=== PATIENT | male | born 1985 | race Caucasian/White ===

== ENCOUNTER 2020-01-02 16:16 | Outpatient (REF) | payer MEDICAID, SELFPAY | END 2020-01-02 16:17 | disposition home or self-care (01) | LOC: HO.LAB 16:16 | PROVIDERS: PCP Internal Medicine; Visit Provider Internal Medicine | DX: Z20.828 Contact with and (suspected) exposure to other viral communicable diseases (principal) | CPT/HCPCS: 87635 ==

== ENCOUNTER 2020-03-21 13:17 | Outpatient (REF) | payer MEDICAID, SELFPAY | END 2020-03-21 13:18 | disposition home or self-care (01) | LOC: HO.LAB 13:17 | PROVIDERS: Visit Provider Internal Medicine | DX: Z20.828 Contact with and (suspected) exposure to other viral communicable diseases (principal) | CPT/HCPCS: C9803; U0003 ==

== ENCOUNTER → 2020-05-29 13:16 | Outpatient (BNVA) | payer OTHER, SELFPAY | PROVIDERS: PCP Internal Medicine; Visit Provider Internal Medicine | DX: R07.2 Precordial pain (principal) | CPT/HCPCS: 93005 ==

== ENCOUNTER → 2020-08-20 08:34 | Outpatient (REF) | payer OTHER, SELFPAY ==
--- NOTE | 2020-08-20 | CA_ITS ---
Transthoracic Echocardiogram Patient (Last, First, Middle): Dayday Jiménez, Gender: Male Date of : 1985 Age: 35 Procedure Date: 08/20/2020 Procedure Type: Transthoracic Echocardiogram Location: OP Height: 177.8 cm Weight: 83.92 kg BSA: 2.02 m2 Heart Rate: bpm BP: 122 / 69 mmHg [employer] Supervisor: DSZaid Referring MD: Neal Romo MD Symptoms: R07.2 - Precordial pain Study Quality: Good ECG Rhythm: Sinus Conclusions: - The left ventricular systolic function is normal. The visually estimated ejection fraction is between 60-65%. - No obvious valvular pathology seen on this study. Findings Left Ventricle Normal left ventricular cavity size. There is normal left ventricular wall thickness. The left ventricular systolic function is normal. The visually estimated ejection fraction is between 60-65%. There is no evidence of regional wall motion abnormalities. Diastolic function is normal for age. Right Ventricle Normal right ventricular cavity size and systolic function. Atria Both atria are normal in size. Aortic Valve There is a normal trileaflet aortic valve. There is no aortic valve stenosis. There is no aortic valve regurgitation. Mitral Valve The mitral valve appears normal. There is trace mitral valve regurgitation. There is no mitral valve stenosis. Pulmonic Valve The pulmonic valve was not well visualized. Tricuspid Valve Normal tricuspid valve structure. There is trace tricuspid valve regurgitation. The pulmonary artery systolic pressure is normal. Great Vessels The aortic annulus, sinuses of valsalva, and asc aorta are normal in size. Likely artifact in ascending aorta. Venous The inferior vena cava is normal in size and collapses greater than 50% with inspiration. Pericardium/Pleural There is no evidence of pericardial effusion. Prior Study Comparison No prior study available for comparison. Recommendations, Care & Conclusions No obvious valvular pathology seen on this study. Measurements M-Mode Liner Measurements Normals - Women/Men LVIDd: 5.57 3.9-5.3/4.2-5.9 cm LVIDd Index: 2.76 1.9-3.2 cm/m2 LVIDs: 3.76 2.0-3.8 cm M-Mode Volumes LV EDV: 152.00 LV ESV: 60.40 2D Linear Measurements IVSd: 0.97 0.6-0.9/0.6-1.0 cm LVIDd: 5.14 3.9-5.3/4.2-5.9 cm LVIDd Index: 2.54 2.4-3.2/2.2-3.1 cm/m2 LVIDs: 3.81 2.0-3.6 cm LVPWd: 1.52 0.7-1.1 cm LA Diam: 3.50 2.7-3.8/3.0-4.0 cm LAIDs Index: 1.73 1.5-2.3 cm/m2 LV Mass: 321.28 67-162/88-224 g LV Mass Index: 159.05 43-95/49-115 g/m2 LVOT Diam: 2.20 3.0+(-)1.3 cm 2D Systolic Function EF 4C: 61.10 >55% EF 2C: 68.60 >55% EF BiP: 63.50 >55% M-Mode Systolic Function FS: 32.50 27-47/25-43% LVEF: 60.30 >55% Mitral Valve MV Pk E: 0.91 MV PK A: 0.53 MV Decel Time: 220.00 E/A: 1.70 E'Lateral: 12.20 E'Medial: 9.36 E/E' Med: 9.80 E/E' Lat: 7.50 PHT: 64.00 MVA PHT: 3.44 Decel Wayne: 4.15 Aortic Valve AoV Pk Luis Miguel: 1.37 AoV Pk Grad: 8.00 LVOT LVOT Pk Luis Miguel: 1.07 LVOT Mn Luis Miguel: 0.70 LVOT VTI: 0.21 LVOT Pk Grad: 5.00 LVOT Mn Grad: 2.00 LVOT Diam: 2.20 LVOT Area: 3.80 Diastolic Function MV Pk E: 0.91 MV Pk A: 0.53 E/A: 1.70 E'Medial: 9.36 E/E' Med: 9.80 E' Laterial: 12.20 E/E' Lat: 7.50 Tricuspid Valve TR Pk Luis Miguel: 2.01 TR Pk Grad: 16.00 RA Press: 3.00 RVSP: 19.00 Great Vessels Aorta Ao Asc: 2.70 2.1-3.4 cm Updated in Other Vendor System with Status of Final Neal Romo MD electronically signed on 08/22/2020 3:49:56 PM with status of Final
--- NOTE | 2020-08-20 08:39 | CA_ITS ---
Acquisition Time: 2020-08-20 09:29:29 Total Exercise Time: 00:12:37 Test Indications: CP Medications: SEE CHART Protocol: KELLEE Max HR: 160 BPM 85% of Pred: 187 BPM Max BP: 158/060 mmHG Max Work Load: 14.5 METS Exercise stress test with exercise 12 min 37 sec of Kellee protocol, without anginal symptoms, without arrythmia, with normotensive response to exercise, without EKG changes meeting criteria for ischemia. Test reviewed with Dr Romo. Referred By: Neal Romo Overread By: PRATIK VELIZ
== END ==
LOC: HO.CARD 08:34
PROVIDERS: Visit Provider Internal Medicine
DX: R07.2 Precordial pain (principal)
CPT/HCPCS: 93016; 93017; 93018; 93306

== ENCOUNTER 2021-03-12 10:19 | Outpatient (REF) | payer OTHER, SELFPAY ==
[2021-03-12 12:02] LABS: COVID-19 Test Negative (Negative); IDNOW Serial# 16C4AD1C
== END 2021-03-12 10:20 | disposition home or self-care (01) ==
LOC: HO.LAB 10:19
PROVIDERS: Visit Provider Internal Medicine
DX: Z20.822 Contact with and (suspected) exposure to COVID-19 (principal)
CPT/HCPCS: 36415; 87635; C9803

== ENCOUNTER 2021-04-14 10:56 | Outpatient (REF) | payer OTHER, SELFPAY ==
--- NOTE | ~2021-04-14 | XR_ITS ---
EXAMINATION: XR CHEST CLINICAL INFORMATION: Cough COMPARISON: Previous chest x-ray September 2017 TECHNIQUE: 2 views of the chest were obtained. FINDINGS: No significant abnormality is noted involving the heart, lungs, mediastinum, bony thorax or soft tissues. XR/XR chest 2V IMPRESSION: Unremarkable examination.
== END 2021-04-14 10:57 | disposition home or self-care (01) ==
LOC: HO.XRAY 10:56
PROVIDERS: PCP Internal Medicine; Visit Provider Physician Assistant Medical
DX: R05.9 Cough, unspecified (principal)
CPT/HCPCS: 71046

== ENCOUNTER 2021-04-15 09:07 | Outpatient (REF) | payer OTHER, SELFPAY ==
[2021-04-15 09:44] LABS: COVID-19 Test Positive (Negative)
== END 2021-04-15 09:08 | disposition home or self-care (01) ==
LOC: HO.LAB 09:07
PROVIDERS: Visit Provider Internal Medicine
DX: Z20.822 Contact with and (suspected) exposure to COVID-19 (principal)
CPT/HCPCS: 87635; C9803

== ENCOUNTER 2021-05-06 08:04 | Outpatient (REF) | payer OTHER, SELFPAY ==
[2021-05-06 08:25] LABS: MANUAL DIFF FLAG NO
[2021-05-06 08:34] LABS: Basophils Percent Auto 0.6 % (0-2); Eosinophils Absolute Auto 0.2 X10*3/uL (0.0-0.4); Eosinophils Percent Auto 3.1 % (0-4); Hematocrit 50.4 % (42.0-52.0); Hemoglobin 16.6 g/dl (14.0-18.0); Imm Gran Abs Auto 0.01 X10*3/uL (0.00-0.03); Imm Gran Pct Auto 0.1 % (0.0-0.4); Lymphocytes Absolute Auto 2.2 X10*3/uL (1.2-4.9); Lymphocytes Percent Auto 33.2 % (20-40); Mean Corpuscular HGB Conc 32.9 g/dl (31.0-36.0); Mean Corpuscular Hemoglobin 29.4 pg (27.0-33.0); Mean Corpuscular Volume 89.2 fL (80.0-98.0); Mean Platelet Volume 11.1 fL (9.4-12.4); Monocytes Absolute Auto 0.9 X10*3/uL (0.1-1.2); Monocytes Percent Auto 13.6 % (2-11); Neutrophils Absolute Auto 3.3 x10*3/uL (2.0-8.3); Neutrophils Percent Auto 49.4 % (45-73); Platelet Count 205 X10*3/uL (160-400); Red Blood Count 5.65 X10*6/uL (4.60-5.80); White Blood Count 6.7 X10*3/uL (4.8-10.8)
[2021-05-06 08:56] LABS: Alanine Aminotransferase 61 U/L (0-40); Albumin Level 4.5 g/dL (3.5-5.0); Alkaline Phosphatase 38 U/L (39-117); Anion Gap 12 (12-20); Aspartate Amino Transferase 37 U/L (5-37); Bilirubin Total 0.8 mg/dL (0.0-1.0); Blood Urea Nitrogen 24 mg/dL (9-16); C Reactive Protein 0.06 mg/dL (< or = 0.50); Calcium 9.7 mg/dL (8.4-10.2); Carbon Dioxide 28 mmol/L (22-29); Chloride 104 mmol/L (96-108); Estimated Glomerular Filt Rate > 60; Glucose Random 107 mg/dL (60-115); Potassium 4.8 mmol/L (3.3-5.1); Sodium 139 mmol/L (135-145); Total Protein 7.7 g/dL (6.5-8.0)
[2021-05-06 09:12] LABS: Erythrocyte Sedimentation Rate 2 MM/HR (0-15)
[2021-05-06 09:17] LABS: Free T4 (Free Thyroxine) 0.93 ng/dL (0.71-1.85); Thyroid Stimulating Hormone 2.67 uIU/mL (0.32-4.0)
[2021-05-08 01:07] LABS: Lyme Abs Screen <0.90 index
[2021-05-08 12:51] LABS: Anti Nuclear Antibody Screen NEGATIVE (NEGATIVE)
[2021-05-11 17:47] LABS: Testosterone, Free 282.6 pg/mL (35.0-155.0); Testosterone, Total 886 ng/dL (250-1100)
== END 2021-05-06 08:05 | disposition home or self-care (01) ==
LOC: HO.LAB 08:04
PROVIDERS: Visit Provider Physician Assistant Medical
DX: R07.89 Other chest pain (principal); R05.9 Cough, unspecified; R50.9 Fever, unspecified; E29.0 Testicular hyperfunction; M25.50 Pain in unspecified joint
CPT/HCPCS: 36415; 80053; 84402; 84403; 84439; 84443; 85025; 85652; 86038; 86039; 86140; 86617; 86618

== ENCOUNTER → 2021-07-08 14:50 | Outpatient (BNVA) | payer OTHER, SELFPAY | PROVIDERS: PCP Internal Medicine; Visit Provider Physician Assistant | DX: Z13.89 Encounter for screening for other disorder (principal) ==

== ENCOUNTER → 2021-08-22 09:17 | Outpatient (BNVA) | payer OTHER, SELFPAY | PROVIDERS: PCP Internal Medicine; Visit Provider Orthopaedic Surgery | DX: S43.431A Superior glenoid labrum lesion of right shoulder, initial encounter (principal) | CPT/HCPCS: 20610; J1100 ==

== ENCOUNTER 2022-02-25 08:36 | Day surgery (SDC) | payer OTHER, SELFPAY ==
--- NOTE | 2022-02-24 09:16 | P.CONAN_ITS ---
Documented by User: Yolanda Jo NP 02/24/22 09:18 HPI - Anesthesia Eval Consult details Narrative: 37yo M for Right Shoulder Arthroscopy with possible rotator cuff repair 2020 work up for chest pain with negative stress and echo PMFSH Active Problems Active Problems: All Active Problems (Updated 02/16/22 @ 14:13 by Mila Berg, RN) Precordial chest pain (Acute) Supraspinatus tendon tear (Acute) Superior labrum [id number] (SLAP) tear of right shoulder (Acute) Osteolysis of acromial end of right clavicle (Acute) Past Medical History Medical History (Updated 02/16/22 @ 14:13 by Mila Berg RN) Anxiety disorder Depression History of traumatic brain injury Hypogonadism Insomnia Low back pain Lumbar radiculopathy Palpitations Family History Family History Father No problems noted. Mother No problems noted. Surgical History Surgical History No pertinent past surgical history Social History Social History Patient Tobacco Use Status: Former Tobacco user Tobacco use type: Cigarette Use of substances other than those prescribed or required for medical reasons: Yes Substance Use Type Other:: THC DROPS Are you DNR?: No Advance Directives: No Advance Directives Information Provided: Yes Current occupational status: employed Current occupation: [employer] Allergies Allergy/AdvReac Type Severity Reaction Status Date / Time oxycodone AdvReac Nausea and Verified 02/25/22 08:45 Vomiting Home Medications Medication Instructions Recorded Confirmed Last Taken Type testosterone cypionate 100 mg/mL 50 mg IM .Q8-10 days 05/29/20 02/16/22 Unknown History intramuscular oil Exam Exam Date and Time: February 24, 2022 0916 Assessment and Plan Assessment Anesthesia Assessment: Chart Reviewed Documented by User: Alicia Woodard MD 02/25/22 10:36 [facility] Past Medical History Medical History (Updated 02/16/22 @ 14:13 by Mila Berg RN) Anxiety disorder Depression History of traumatic brain injury Hypogonadism Insomnia Low back pain Lumbar radiculopathy Palpitations Family History Family History Father No problems noted. Mother No problems noted. Surgical History Surgical History No pertinent past surgical history History of Problems with Anesthesia: No Social History Social History Patient Tobacco Use Status: Former Tobacco user Tobacco use type: Cigarette Use of substances other than those prescribed or required for medical reasons: Yes Substance Use Type Other:: THC DROPS Are you DNR?: No Advance Directives: No Advance Directives Information Provided: Yes Current occupational status: employed Current occupation: [employer] Med[employer] Allergies Allergy/AdvReac Type Severity Reaction Status Date / Time oxycodone AdvReac Nausea and Verified 02/25/22 08:45 Vomiting Home Medications Medication Instructions Recorded Confirmed Last Taken Type testosterone cypionate 100 mg/mL 50 mg IM .Q8-10 days 05/29/20 02/16/22 Unknown History intramuscular oil Exam Airway Mallampati Class: I TM Dist: >3cm Neck ROM: Full Heart: rr Lungs: cta Assessment and Plan Final Anesthetic Review History of Problems with Anesthesia: No ASA Class: II Final Preanesthetic Review: No Changes in Pt Med Stat, Meds/Allgs Chart Reviewed, Consent Obtained/Reviewed and Anes Risks/Benef Reviewed Patient Risk: Low Procedure Risk: Low Anesthetic Plan Anesthetic Plan: GA and Regional Block (Supraclavicular) Disposition: Standard PACU
[2022-02-25] VITALS (8 sets, daily range): BP systolic 105–120; BP diastolic 54–69; PULSE 58–73; RESP 16–18; TEMP 36.3–36.5; O2SAT 96–99; BMI 25.7
[2022-02-25] MEDS: Lactated Ringers 1,000 ML 100 ML IVCONT (09:25)
--- NOTE | 2022-02-25 09:26 | PC.NURSE ---
BEFORE IV INSERTION PATIENT STATED HE USUALLY PASSES OUT WITH BLOODWORK. SUPINE, COLD CLOTH APPLIED TO FOREHEAD, IV INSERTED JEANETTE WELL. NO VAGAL RESPONSE.
--- NOTE | 2022-02-25 10:58 | MHC.SHP ---
Pre-Procedural Eval Section A Date of Service: 02/25/22 The patient is an INPATIENT: No Changes since office visit: Yes Patient answered all questions; No Cold of Flu in the past 2 weeks, No New Medical Problems and No Changes in Medication The History & Physical has been completed within 30 days and I have reviewed it.: Yes Section B Chief Complaint: Superior glenoid labrum lesion of right shoulder, Allergies: Allergies Allergy/AdvReac Type Severity Reaction Status Date / Time oxycodone AdvReac Nausea and Verified 02/25/22 08:45 Vomiting Plan I have reviewed the history and physical and performed a pertinent physical examination on my patient. No changes have occurred unless specified.
--- NOTE | 2022-02-25 13:10 | P.BOP_ITS ---
Brief Operative Note Date of Service: 02/25/22 Pre-op diagnosis: Right shoulder RTC tear Post-op diagnosis: same Procedure: Right shoulder RTC repair Implants: Maldonado and Nephew helacoil x 2 Regeneten bioinductive implant ( [id number]) Surgeon: Jorge Das MD Anesthesia: GETA and regional Was an Labor Relations Specialist used for this Procedure?: Yes Labor Relations Specialist: Kacie Clements Estimated blood loss (mL): 20 IV fluids (mL): 800 Pathology: none sent Condition: stable Disposition: PACU
[2022-02-25] MEDS: Throat Lozenge, Medicated LOZENGE 1 LOZENGE MUCOUS MEM (14:09)
--- NOTE | 2022-03-06 10:02 | P.OP_ITS ---
Operative Note Operative Note Date of Service: 02/25/22 Narrative: Date of Service: 02/25/22 Pre-op diagnosis: Right shoulder RTC tear Post-op diagnosis: same Procedure: Right shoulder RTC repair Implants: Maldonado and Nephew helacoil x 2 Regeneten bioinductive implant ( [id number]) Surgeon: Jorge Das MD Anesthesia: GETA and regional Was an Manpower Development Specialist Manager used for this Procedure?: Yes Manpower Development Specialist Manager: Kacie Clements Estimated blood loss (mL): 20 IV fluids (mL): 800 Pathology: none sent Condition: stable Disposition: PACU Procedure in detail: Patient was brought to the operating room and placed the the beach chair position. All bony prominences were well padded and the limb was prepped and draped in standard sterile fashion. A time out was called to identify proper site, proper procedure and proper surgeon. IV antibiotics per weight were administered. I began by making a posterolateral stab incision with a 15 blade. A blunt trochar was placed into the glenohumeral joint and I insufflated the joint with saline and a 30 degree arthroscope was placed. I established an outside- in anterior portal just distal to the biceps tendon. I then began my inspection of the glenohumeral joint. There was intact biceps and superior labrum with no SLAP tear. There was anteriorinferior labral fraying and a small area of post-traumatic cartialge change at the 5 o:clock position. There was a negative drive through sign. I debrided the [id number] labrum and the associated chondromalacia. There were no additional arthritic changes. There was, howevere, a PASTA lesion. I placed a spinal needle through this from the subacromial space and debrided it with a shaver. I then removed the trochar and entered the subacromial space. A direct lateral portal was then established and I performed a bursectomy. The cuff was then examined. There was an intact bursal layer but at the location of the PASTA lesion there was thin tissue and it was easily converted to a full thickness tear with a shaver. I then debrided loose tissue and then placed one medial row anchor and two looped sutures around the edges. I then debrided the bare area down to bleeding bone. The suture tape was brought through the cuff using a scorpion and then 4 suture limbs were brought to one lateral Helacoil anchor. I had excellent reproduction of the normal cuff anatomy. There was mild bursal sided partial tearing of the cuff but given the severity of the PASTA lesion I elected to place a 25mm x 25mm Regeneten bioinductive collagen graft. This was placed via a lateral portal and 8 PEEK tacks and one bony anchor laterally. I had excellent coiverage over the supraspinatus. Once I was satisfied with the r epair final images were captured and I removed all instrumentation. Portals were closed with nylon. Patient was placed in an abduction sling, extubated and brought to the recovery room in stable condition. There were no known complications.
== END 2022-02-25 15:37 | disposition home or self-care (01) ==
LOC: HO.SSS 08:36
PROVIDERS: PCP Physician Assistant Medical; Visit Provider Orthopaedic Surgery
PROC: (CPT 29805; principal; 2022-02-25 10:50)
DX: M75.101 Unspecified rotator cuff tear or rupture of right shoulder, not specified as traumatic (principal); M89.511 Osteolysis, right shoulder; M54.16 Radiculopathy, lumbar region; F32.A Depression, unspecified; F41.1 Generalized anxiety disorder; G47.00 Insomnia, unspecified; R00.2 Palpitations; Z79.899 Other long term (current) drug therapy; Z87.820 Personal history of traumatic brain injury
CPT/HCPCS: 29827; 29826; C1713; C1781; J0690; J2250; J2795; J3010

== ENCOUNTER 2022-04-06 10:31 | Outpatient (REF) | payer OTHER, SELFPAY ==
--- NOTE | ~2022-04-06 | XR_ITS ---
EXAMINATION: XR SHOULDER, RIGHT CLINICAL INFORMATION: Pain shoulder COMPARISON: Right shoulder arthrogram 05/21/2021 and selected images right shoulder MRI 11/18/2021. TECHNIQUE: Two views of the right shoulder. FINDINGS: Evidence of prior surgical anchor in the right humeral head. The right humeral head is inferiorly subluxed with apparent joint effusion and widening of the shoulder joint. Multiple small ossific fragments or calcifications are seen adjacent to the greater tuberosity and in the subacromial space. XR/XR shoulder RT min 2V IMPRESSION: 1. Inferior subluxation of the right humeral head with apparent joint effusion. 2. Multiple small ossific fragments or calcifications are seen in the subacromial space and adjacent to the greater tuberosity. 3. The findings have progressed since the prior exam of 05/21/2021.
== END 2022-04-06 10:32 | disposition home or self-care (01) ==
LOC: HO.HOSX 10:31
PROVIDERS: PCP Physician Assistant Medical; Visit Provider Physician Assistant
DX: S43.431D Superior glenoid labrum lesion of right shoulder, subsequent encounter (principal)
CPT/HCPCS: 73030

== ENCOUNTER → 2022-05-11 09:55 | Outpatient (BNVA) | payer OTHER, SELFPAY | PROVIDERS: PCP Physician Assistant Medical; Visit Provider Internal Medicine Rheumatology | DX: Z13.89 Encounter for screening for other disorder (principal) ==

== ENCOUNTER 2022-05-11 11:28 | Outpatient (REF) | payer OTHER, SELFPAY ==
[2022-05-11 13:22] LABS: MANUAL DIFF FLAG NO
[2022-05-11 13:28] LABS: Basophils Absolute Auto 0.1 X10*3/uL (0.0-0.2); Basophils Percent Auto 0.6 % (0-2); Eosinophils Absolute Auto 0.2 X10*3/uL (0.0-0.4); Eosinophils Percent Auto 2.4 % (0-4); Hematocrit 47.6 % (42.0-52.0); Hemoglobin 15.8 g/dl (14.0-18.0); Imm Gran Abs Auto 0.03 X10*3/uL (0.00-0.03); Imm Gran Pct Auto 0.4 % (0.0-0.4); Lymphocytes Absolute Auto 1.8 X10*3/uL (1.2-4.9); Lymphocytes Percent Auto 22.3 % (20-40); Mean Corpuscular HGB Conc 33.2 g/dl (31.0-36.0); Mean Corpuscular Volume 90.3 fL (80.0-98.0); Mean Platelet Volume 11.5 fL (9.4-12.4); Monocytes Absolute Auto 0.8 X10*3/uL (0.1-1.2); Neutrophils Absolute Auto 5.2 x10*3/uL (2.0-8.3); Neutrophils Percent Auto 64.3 % (45-73); Platelet Count 190 X10*3/uL (160-400); Red Blood Count 5.27 X10*6/uL (4.60-5.80); Red Cell Distribution Width 13.6 % (11.0-16.0)
[2022-05-11 14:06] LABS: Erythrocyte Sedimentation Rate 1 MM/HR (0-15)
[2022-05-11 14:12] LABS: Alanine Aminotransferase 27 U/L (0-40); Albumin Level 4.4 g/dL (3.5-5.0); Alkaline Phosphatase 46 U/L (39-117); Anion Gap 12 (12-20); Aspartate Amino Transferase 20 U/L (5-37); Bilirubin Total 0.3 mg/dL (0.0-1.0); Blood Urea Nitrogen 23 mg/dL (9-16); C Reactive Protein 0.11 mg/dL (< or = 0.50); Calcium 9.4 mg/dL (8.4-10.2); Carbon Dioxide 29 mmol/L (22-29); Chloride 104 mmol/L (96-108); Estimated Glomerular Filt Rate > 60; Glucose Random 95 mg/dL (60-115); Potassium 4.5 mmol/L (3.3-5.1); Sodium 140 mmol/L (135-145); Total Protein 7.5 g/dL (6.5-8.0)
[2022-05-11 15:33] LABS: Rheumatoid Factor < 13.0 IU/mL (<15.0)
[2022-05-12 15:09] LABS: Cyclic Citrullinated Peptide <16 UNITS
[2022-05-14 09:39] LABS: Anti Nuclear Antibody Screen NEGATIVE (NEGATIVE)
[2022-05-19 11:39] LABS: Testosterone, Free 86.6 pg/mL (35.0-155.0); Testosterone, Total 378 ng/dL (250-1100)
== END 2022-05-11 11:29 | disposition home or self-care (01) ==
LOC: HO.10HDL 11:28
PROVIDERS: Visit Provider Internal Medicine Rheumatology
DX: M79.10 Myalgia, unspecified site (principal); Z79.890 Hormone replacement therapy
CPT/HCPCS: 36415; 80053; 82550; 84402; 84403; 85025; 85652; 86038; 86039; 86140; 86200; 86431

== ENCOUNTER → 2022-05-19 12:45 | Outpatient (BNVA) | payer OTHER, SELFPAY | PROVIDERS: PCP Physician Assistant Medical; Visit Provider Physician Assistant | DX: Z13.89 Encounter for screening for other disorder (principal) ==

== ENCOUNTER 2022-06-16 14:24 | Outpatient (REF) | payer OTHER, SELFPAY ==
--- NOTE | ~2022-06-16 | XR_ITS ---
EXAMINATION: XR SHOULDER, LEFT CLINICAL INFORMATION: Pain. COMPARISON: None available. TECHNIQUE: AP external rotation, Grashey, scapular Y, and axillary views of the left shoulder. FINDINGS: The bones and soft tissues are normal. No fracture. Glenohumeral and acromioclavicular alignment is anatomic with normal joint space. No abnormal soft tissue calcifications. XR/XR shoulder LT min 2V IMPRESSION: Unremarkable left shoulder.
== END 2022-06-16 14:25 | disposition home or self-care (01) ==
LOC: HO.HOSX 14:24
PROVIDERS: Visit Provider Physician Assistant
DX: M75.102 Unspecified rotator cuff tear or rupture of left shoulder, not specified as traumatic (principal); M25.511 Pain in right shoulder
CPT/HCPCS: 73030

== ENCOUNTER 2022-06-24 09:00 | Outpatient (RCR) | payer OTHER, SELFPAY ==
--- NOTE | 2022-03-02 09:50 | MHC.PT.EP ---
[facility] [place] Office [place] Office [place] Office [address] Lauren Hurley [address] [phone] F: [phone] F: [phone] F: [phone] F: [phone] Physical Therapy Plan of Care Date of Evaluation: Date of Surgery: 02/25/22 Diagnosis: RIGHT RTCR WITH COLLAGEN PATCH (WATCH ROM) Assessment: MAYANK IS A PLEASANT 37 YO MALE WITH HISTORY OF INCREASING SHOULDER PAIN OVER SEVERAL YEARS WHICH HE REALTES TO FALLS DURING SPORT ACTIVITIES IN THE PAST. TODAY HE PRESENTS POD#5 FOR ORTHOPEDIC FOLLOW UP AND PT EVALUATION. UPON EXAM HE DEMONSTRATES THE EXPECTED IMPAIRMENTS OF DECREASED ROM, DECREASED STRENGTH, ALTERED POSTURE AND POSITIONING, INCREASED UPPER TRAP GUARDING, AND INCREASED PAIN AND EDEMA. FUNCTIONAL LIMITATIONS INCLUDE DECREASED ABILITY TO PERFORM HOMEMAKING AND SELF-CARE TASKS, DECREASED ABILITY TO PERFORM PUSHING, PULLING, LIFTING AND REACHING. INABILITY TO DRIVE AND PERFORM WORK TASKS, DECREASED PARTICIPATION IN COMMUNITY AND RECREATIONAL ACTIVITIES AND DISRUPTED SLEEP. THE PT IS A GOOD CANDIDATE FOR SKILLED PT DUE TO AGE, POTENTIAL REMEDIATION OF IMPAIRMENTS, TYPICAL DISEASE/CONDITION PROGRESSION AND PROGNOSIS, COMORBIDITIES, AND MOTIVATION. PT WOULD BENEFIT FROM TAILORED PROGRAM OF THERAPEUTIC ACTIVITIES, FUNCTIONAL TRAINING,, POSTURAL EDUCATION, NEUROMUSCULAR RE-EDUCATION, AND MODALITIES NEEDED. Frequency and Duration: The patient will be seen 2 X WEEK FOR 12 WEEKS Short Term Goals: INITIATE HEP AND PROMOTE SELF MANAGEMENET OF SYMPTOMS Usp Goals: FULL, PAIN FREE ROM FULL UE STRENGTH, PAIN FREE TO PERFORM COMPUTER AND WORK TASKS WITHOUT RESTRICTION AND PAIN NO GREATER THAN 2/[address] OBJECT AT MINIMUM OF 5# INTO CABINET AT SHOULDER HEIGHT Treatment Plan: Modalities to reduce pain, spasms and effusion. Manual therapy to restore motion and function. Therapeutic exercise to improve strength and flexibility. Neuromuscular re-education for posture and balance. Therapeutic activities to return to functional activities of daily living. Electronically signed by: KASIE DELAROSA PT, DPT Please sign and return to therapist. Thank you for your referral.
--- NOTE | 2022-07-01 11:23 | MHC.PT.DC ---
[facility] [place] Office [place] Office [place] Office [address] Lauren Hurley [address] [phone] F: [phone] F: [phone] F: [phone] F: [phone] Physical Therapy Discharge Report Diagnosis: RIGHT RTCR WITH COLLAGEN PATCH (WATCH ROM) Date of Surgery: 02/25/22 Date of Evaluation: 03/02/22 Date of Discharge: 07/01/22 Treatments to Date: 25 Cancellations to Date: 0 No Shows to Date: 0 Discharge Status: Achieved Goals Improved Function Independent with HEP Discharge Summary: He has made good progress with shoulder ROM and strength. He continues to demonstrate strength deficits in serratus and shoulder external rotators and pt to continue to perform HEP with understanding of how to gradually progress resistance. At this time, he is appropriate for d/c and he is to continue with independent HEP to continue to improve posture and work on strength and endurance in shoulder girdle and postural muscles. Electronically signed by: Estrella Garnica PT Please sign and return to therapist. Thank you for your referral.
== END 2022-07-01 11:24 | disposition home or self-care (01) ==
LOC: HO.PT 09:00
PROVIDERS: Visit Provider Physician Assistant
DX: M75.101 Unspecified rotator cuff tear or rupture of right shoulder, not specified as traumatic (principal); S43.431A Superior glenoid labrum lesion of right shoulder, initial encounter
CPT/HCPCS: 97014; 97110; 97112; 97140; 97161; 97530

== ENCOUNTER 2022-06-26 07:19 | Outpatient (REF) | payer OTHER, SELFPAY ==
--- NOTE | ~2022-06-26 | MR_ITS ---
EXAMINATION: MRI LEFT SHOULDER WITHOUT CONTRAST CLINICAL INFORMATION: Left shoulder pain. COMPARISON: Radiographs 06/16/2022. TECHNIQUE: MRI of the shoulder without contrast is performed on a 1.5 Rylie high-field scanner. FINDINGS: ROTATOR CUFF: Severe supraspinatus tendinosis. There is a linear full-thickness tear with an associated ganglion which extends longitudinally along the lateral aspect of the humeral head approximately 3.1 cm, a portion of which chronically erodes the lateral cortex of the greater tuberosity. Moderate subscapularis tendinopathy. A very small longitudinal cyst within the infraspinatus tendon implies that there is a small undersurface tear which is not clearly identified. No muscle atrophy or fatty infiltration. BICEPS: Normal. CORACOACROMIAL ARCH: The undersurface of the acromion is curved with no subacromial spur. The acromioclavicular joint is normal. Mild subacromial subdeltoid bursitis. LABRUM/CAPSULE: No evidence of a labral tear. GLENOHUMERAL JOINT/MARROW: No focal articular cartilage defect or joint effusion. ADDITIONAL FINDINGS: None. MR/MR shoulder LT wo con IMPRESSION: 1. Severe supraspinatus tendinosis with a linear full-thickness tear and associated ganglion extending longitudinally along the lateral aspect of the humeral head. 2. Moderate subscapularis tendinopathy. 3. Mild subacromial subdeltoid bursitis.
== END 2022-06-26 07:20 | disposition home or self-care (01) ==
LOC: HO.MRI 07:19
PROVIDERS: PCP Physician Assistant Medical; Visit Provider Physician Assistant
DX: M75.102 Unspecified rotator cuff tear or rupture of left shoulder, not specified as traumatic (principal)
CPT/HCPCS: 73221

== ENCOUNTER → 2022-07-14 12:34 | Outpatient (BNVA) | payer OTHER, SELFPAY | PROVIDERS: PCP Physician Assistant Medical; Visit Provider Physician Assistant | DX: Z13.89 Encounter for screening for other disorder (principal) ==

== ENCOUNTER 2022-11-27 09:44 | Outpatient (AMB) | payer OTHER, SELFPAY ==
--- NOTE | 2022-11-27 10:02 | A.OFFVIS_ITS ---
Intake Intake Visit Reasons: vasectomy consult Intake Note: New Patient is Present for Vasectomy Consultation Current Medication: none Antibiotic Allergy:None Blood Thinner: None Pharmacy: [facility] Patient has 1 Child and is not currently expecting. Allergies No Known Allergies Allergy (Verified 11/27/22 10:06) HPI HPI Comments History of Present Illness Details Dayday is a very pleasant male. He is a patient of . He is seen for the following urologic condition - anxiety about health - Vasectomy evaluation Vasectomy evaluation The patient presents for vasectomy consultation. He is currently He has fathered - 1 child, with a single partner. The youngest child is - 10 years old. His partner is aware and permissive for a vasectomy Current form of control is subcutaneous hormone. The vasectomy may be complicated due to a history of no complicating issues, inguinal hernia repair, orchidopexy, history of orchitis, orchiectomy. Patient education has been provided via AUA video, via printed information, risks of failure, recovery time, bruising and potential pain syndrome have been stressed Discussion today focused on the presence of vasectomy and the risks, benefits and alternatives that are available. Vasectomy as intended as a permanent form of control. Printed information and literature was provided to the patient. Overall there is a one in 2500 failure rate. This can occur at any time after vasectomy. Risks were discussed highlighting hematoma, spermatocele, epididymal congestion, development of sperm antibodies, and development of chronic pain estimated between 1-5%. The procedure was reviewed in detail. Anatomical diagrams of the male genitalia were used to explain the location of the vas deferens. The vas deferens will be transected, the proximal end will be cauterized, a metal clip would be applied to separate the 2 vas deferens ends. It was explained the procedure will be done in the office and takes approximately 10-15 minutes. Less common problems that arise with vasectomy include hematoma, bleeding, allergic reaction to anesthetic, epididymal infection, epididymal congestion, scrotal discomfort, spermatic leak, spermatic granuloma and the possibility of antisperm antibodies. He understands these risks and wishes to proceed. Consent was signed at the office today. He also understands that it takes 12 weeks for sperm to fully clear the system. He will need to provide a semen sample at 12 weeks and if this is not clear a 2nd sample at 16 weeks. Medical clearance to stop using protection will only be provided if he satisfies published criteria for sperm clearance. . PFSH Medical History Anxiety disorder Depression History of traumatic brain injury Hypogonadism Insomnia Low back pain Lumbar radiculopathy Palpitations Surgical History Hx of rotator cuff surgery Family History Father No problems noted. Mother No problems noted. Social History Patient Tobacco Use Status: Former Tobacco user Tobacco use type: Cigarette Current occupational status: employed Current occupation: [employer]ave[employer]/ Right hand dominant Review of Systems Const Denies chills and Denies fever(s) Card Reports no additional complaints and Denies syncope Resp Denies cough GI Denies abdominal pain and Denies heartburn Reports as per HPI and Denies change in libido Neuro Denies syncope Psych Denies change in libido Endo Denies change in libido Physical Exam Const General: cooperative, healthy appearing, comfortable and no acute distress Orientation/consciousness: patient oriented x3 HEENT Face and sinus: Yes normal facial exam Mouth: moist mucous membranes Neck Neck: Yes normal visual inspection, Yes full ROM and Yes trachea midline Chest Chest palpation & inspection: normal inspection of the chest Resp Effort & Inspection: normal respiratory effort, able to speak in complete sentences and no respiratory distress GI Inspection: Yes normal to inspection Back/Spine/Pelvis Cervical Spine: normal cervical lordosis Thoracic/Lumbar Spine: thoracic and lumbar spine normal to inspection Skin General skin exam: no rashes or lesions noted Neuro General: patient oriented x3, gait normal, tone normal and moves all extremities Extrem General: Yes normal to inspection and Yes capillary refill normal Assessment & Plan Assessment & Plan (1) Anxiety about health: Code(s): F41.8 - Other specified anxiety disorders Plan Schedule vasectomy Medications: New acetaminophen-codeine 300-30 mg 1 tab PO Q8H 9 tabs 0RF 3 days F41.8 - Other specified anxiety disorders diazepam Take medication after arrival at office 2 mg PO BID PRN 2 tabs 0RF anxiety 1 day F41.8 - Other specified anxiety disorders Patient Instructions: Imaging studies, laboratory and physical exam results were discussed and reviewed in detail. No major barriers to patient understanding were identified. An opportunity to ask questions regarding the treatment plan was provided. All questions were answered. The patient expressed understanding and agreement with the above treatment plan. The patient is aware they should contact our office by phone for worsening of their current condition or the appearance of new urologic symptoms. Compliance is encouraged with any medications and followup testing that is ordered. It is a privilege to participate in the urologic care of your patient. If you have any questions or concerns regarding treatment for the above conditions, or other urologic issues, please do not hesitate to contact me. The office teleph one contact is [phone]. This note is constructed using voice recognition software. While every effort has been made to ensure accuracy cnc service technician errors may have been included. Yours sincerely, Dr Arpit Colon MD, [facility] - Urology Providers of Expert, Compassionate Care for the Genitourinary System Coding Level of Care Code New Pt Level 4 (57380) Diagnoses Anxiety about health F41.8
== END 2022-11-27 10:28 | disposition home or self-care (01) ==
PROVIDERS: PCP Physician Assistant Medical; Visit Provider Urology
DX: Z30.09 Encounter for other general counseling and advice on contraception (principal); F41.8 Other specified anxiety disorders
CPT/HCPCS: 99204

== ENCOUNTER → 2022-11-27 09:44 | Outpatient (BNVA) | payer OTHER, SELFPAY | PROVIDERS: PCP Physician Assistant Medical; Visit Provider Urology ==

== ENCOUNTER 2022-12-25 11:28 | Outpatient (REF) | payer OTHER, SELFPAY ==
--- NOTE | ~2022-12-25 | XR_ITS ---
EXAMINATION: XR SHOULDER, RIGHT. XR ELBOW, RIGHT. CLINICAL INFORMATION: Right shoulder and right elbow pain COMPARISON: Radiographs right shoulder 04/06/2022 TECHNIQUE: 3 views of the right shoulder. 3 views of the right elbow. FINDINGS: Right shoulder: Rotator cuff repair anchor in the humeral head, unchanged. Mild acromioclavicular and glenohumeral osteoarthritis. No acute osseous abnormality. Right elbow: No fracture or malalignment. No joint effusion. No significant degenerative findings. XR/XR elbow RT 2V IMPRESSION: RIGHT SHOULDER: Mild acromioclavicular and glenohumeral osteoarthritis. No acute osseous abnormality. RIGHT ELBOW: Normal.
--- NOTE | ~2022-12-25 | XR_ITS ---
EXAMINATION: XR SHOULDER, RIGHT. XR ELBOW, RIGHT. CLINICAL INFORMATION: Right shoulder and right elbow pain COMPARISON: Radiographs right shoulder 04/06/2022 TECHNIQUE: 3 views of the right shoulder. 3 views of the right elbow. FINDINGS: Right shoulder: Rotator cuff repair anchor in the humeral head, unchanged. Mild acromioclavicular and glenohumeral osteoarthritis. No acute osseous abnormality. Right elbow: No fracture or malalignment. No joint effusion. No significant degenerative findings. XR/XR shoulder RT min 2V IMPRESSION: RIGHT SHOULDER: Mild acromioclavicular and glenohumeral osteoarthritis. No acute osseous abnormality. RIGHT ELBOW: Normal.
== END 2022-12-25 11:29 | disposition home or self-care (01) ==
LOC: HO.HOSX 11:28
PROVIDERS: PCP Physician Assistant Medical; Visit Provider Orthopaedic Surgery
DX: M25.521 Pain in right elbow (principal); M25.511 Pain in right shoulder; Z98.890 Other specified postprocedural states
CPT/HCPCS: 73030; 73070

== ENCOUNTER 2022-12-25 11:28 | Outpatient (AMB) | payer OTHER, SELFPAY ==
--- NOTE | 2022-12-25 11:47 | MHC.OFFVIS ---
Intake Vital Signs 12/25/22 11:50 Height 5 ft 1 in Weight 182 lb BMI 34.4 Intake Visit Reasons: OV - RTC repair- 02/25/22- New Injury Intake Note: Dayday is a 37 year right hand dominant male who presents today for a follow up for his right shoulder pain. Patient reports that he took a fall down the stairs yesterday (12/24/22) while carrying laundry basket. When he fell he landed on the right elbow causing significant impact to the shoulder. Since the fall he has been having increased pain in the right arm. Allergies No Known Allergies Allergy (Verified 12/25/22 11:51) HPI OV - RTC repair- 02/25/22- New Injury HPI Details Dayday is a 37 year old man who presents with complaints of increased right shoulder & elbow pain, S/P fall down stairs, DOI: 12/24/22. He is ~10 months S/P right RTC repair. He complains of worsening pain for the last ~1 month in his right shoulder, he says this was especially painful if he ever had to hang from his arm, such as in a pull-up position. He has been exercising at the gym but says he has not done any heavy lifting or things He says after his fall yesterday his pain greatly increased. He says he was unable to grab a cup of coffee this morning. [facility] Medical History Lumbar radiculopathy Hypogonadism Palpitations Low back pain Insomnia History of traumatic brain injury Anxiety disorder Depression Surgical History Hx of rotator cuff surgery Family History Father No problems noted. Mother No problems noted. Social History Patient Tobacco Use Status: Former Tobacco user Tobacco use type: Cigarette Current occupational status: employed Current occupation: [employer]ave[employer]/ Right hand dominant Review of Systems Const All systems reviewed & are unremarkable except as noted in HPI and below Physical Exam Vital Signs: BMI result Body Mass Index 34.4 Const General: no acute distress, alert and awake Orientation/consciousness: patient oriented x3 HEENT Head: Yes normocephalic and Yes atraumatic Eyes EOM: EOMs intact bilaterally Resp Effort & Inspection: normal respiratory effort and able to speak in complete sentences Cardio Jugular venous distension: no JVD Skin General skin exam: turgor normal Rashes: no rashes Neuro General: patient oriented x3 Extrem Other: Right Shoulder: SILT ER to 45 pain with abduction and FF RTC grossly intact Psych Appearance: grossly normal Affect: normal affect Attitude: cooperative Results Reviewed Results Reviewed: I personally reviewed relevant radiographs Left shoulder: Hardware intact no acute findings Assessment & Plan Assessment & Plan (1) History of repair of right rotator cuff: Comment: 02/25/22 Code(s): Z98.890 - Other specified postprocedural states Plan: This is a 37 year old man with increased right shoulder pain, S/P fall, DOI: 12/24/22. He is S/P RTC repair, DOS: 02/25/22. He has pain with daily activities, and had difficulties performing basic tasks due to his pain. I reviewed his radiographs with him, there is no evidence of anchor displacement. I recommend rest and gentle kinza-scapular strengthening exercises at home. He will follow up in 2 weeks to assess his shoulder. Plan Scribed for Jorge Das MD by Michael Cintron, medical pathology teacher, on 12/25/22 at 12:15 PM, EST. Orders: Orders XR elbow RT 2V 12/25/22 M25.529 - Pain in unspecified elbow XR shoulder RT min 2V 12/25/22 M25.519 - Pain in unspecified shoulder Coding Level of Care Code Est Pt Level 3 (05384) Diagnoses History of repair of right rotator cuff Z98.890
[2022-12-25 11:50] VITALS: BMI 34.4
== END 2022-12-25 12:47 | disposition home or self-care (01) ==
PROVIDERS: PCP Physician Assistant Medical; Visit Provider Orthopaedic Surgery
DX: M25.511 Pain in right shoulder (principal)
CPT/HCPCS: 99213

== ENCOUNTER 2023-01-11 10:31 | Outpatient (AMB) | payer OTHER, SELFPAY ==
--- NOTE | 2023-01-11 10:34 | MHC.OFFVIS ---
Intake Intake Visit Reasons: OV - RTC repair- 02/25/22- New Injury Intake Note: Dayday is a 37 year right hand dominant male who presents today for a follow up for his right shoulder pain. He is s/p Right RTC Repair 02/25/22 and fall 12/24/22. He slipped and fell while doing laundry. It's been 3 weeks and he hasn't felt any improvement. He takes some ibuprofen as needed for the pain. Allergies No Known Allergies Allergy (Verified 01/11/23 10:42) Medication List - Last Reconciled 01/11/23 by Mahi Do, RAMON acetaminophen-codeine 300-30 mg 1 tab PO Q8H 3 days diazepam 2 mg PO BID PRN 1 day ibuprofen 600 mg PO Q8H PRN sertraline 50 mg PO DAILY testosterone cypionate 50 mg IM .Q8-10 days HPI OV - RTC repair- 02/25/22- New Injury HPI Details Dayday is a 37 year old man who returns to discuss his right shoulder & elbow pain, S/P fall down stairs, DOI: 12/24/22. He is ~10 months S/P right RTC repair. He continues to complain of pain with daily activity. He has been performing at-home RTC exercises daily, which have given him some improvement, and continues to take Ibuprofen for pain relief. [facility] Medical History Lumbar radiculopathy Hypogonadism Palpitations Low back pain Insomnia History of traumatic brain injury Anxiety disorder Depression Surgical History Hx of rotator cuff surgery Family History Father No problems noted. Mother No problems noted. Social History Patient Tobacco Use Status: Former Tobacco user Tobacco use type: Cigarette Current occupational status: employed Current occupation: [employer]ave[employer]/ Right hand dominant Review of Systems Const All systems reviewed & are unremarkable except as noted in HPI and below Physical Exam Const General: no acute distress, alert and awake Orientation/consciousness: patient oriented x3 HEENT Head: Yes normocephalic and Yes atraumatic Eyes EOM: EOMs intact bilaterally Resp Effort & Inspection: normal respiratory effort and able to speak in complete sentences Cardio Jugular venous distension: no JVD Skin General skin exam: turgor normal Rashes: no rashes Neuro General: patient oriented x3 Extrem Other: Right Shoulder: SILT ER to 45 pain with abduction and FF RTC grossly intact 4+/5 empty can Psych Appearance: grossly normal Affect: normal affect Attitude: cooperative Assessment & Plan Assessment & Plan (1) History of repair of right rotator cuff: Comment: 02/25/22 Code(s): Z98.890 - Other specified postprocedural states Plan: This is a 37 year old man with increased right shoulder pain, S/P fall, DOI: 12/24/22. He is S/P RTC repair, DOS: 02/25/22. His symptoms have improved with rest and at-home RTC strengthening exercises, but he continues to have pain I reviewed his radiographs, there is no evidence of anchor displacement. I ordered an MRI of his shoulder to assess, he will follow up when completed for review. Continue strengthening exercises. Plan Scribed for Jorge Das MD by Michael Cintron, medical sales specialist, on 01/11/23 at 11:05 AM, EST. Orders: Orders MR shoulder RT wo con Today Z98.890 - Other specified postprocedural states Coding Level of Care Code Est Pt Level 4 (88048) Diagnoses History of repair of right rotator cuff Z98.890
== END 2023-01-11 11:31 | disposition home or self-care (01) ==
PROVIDERS: PCP Physician Assistant Medical; Visit Provider Orthopaedic Surgery
DX: M75.41 Impingement syndrome of right shoulder (principal); M25.511 Pain in right shoulder
CPT/HCPCS: 99214

== ENCOUNTER → 2023-01-11 10:31 | Outpatient (BNVA) | payer OTHER, SELFPAY | PROVIDERS: PCP Physician Assistant Medical; Visit Provider Orthopaedic Surgery ==

== ENCOUNTER 2023-02-11 08:47 | Outpatient (REF) | payer OTHER, SELFPAY ==
--- NOTE | ~2023-02-11 | MR_ITS ---
EXAMINATION: MR SHOULDER WITHOUT CONTRAST, RIGHT CLINICAL INFORMATION: Fell down, right shoulder injury and pain, status post right rotator cuff repair COMPARISON: MRI arthrogram of right shoulder on 05/21/2021 at [facility] TECHNIQUE: MRI of the shoulder without contrast was performed on a high-field scanner. FINDINGS: ROTATOR CUFF: The right supraspinatus tendon is repaired with 3 anchoring screws in the right humeral greater tuberosity. The repaired right supraspinatus tendon shows thickening and diffuse T2 hyperintensity with a small intrasubstance tear in the distal portion, measuring 0.8 cm in lateral to medial length just beneath the bursal border, series 6 image #11. The infraspinatus tendon also shows diffuse thickening and irregular intrasubstance T2 hyperintensity. LABRUM: The glenoid labrum is unremarkable. TENDONS: The biceps anchor and extraarticular portion of the biceps tendon are intact. The subscapularis muscle and tendon attachment are normal. ACROMIOCLAVICULAR JOINT: The acromioclavicular joint is unremarkable. BONES: The acromion process shows hook shaped downward curving anterior end causing impingement. Extensive bone marrow edema is seen in superior lateral right humeral head and right humeral greater tuberosity. CARTILAGE: Articular cartilage of the humeral head and glenoid fossa are intact. MR/MR shoulder RT wo con IMPRESSION: 1. Interval repair of the right supraspinatus tendon with anchoring screws in the right humeral greater tuberosity. Interval development of extensive right supraspinatus tendinosis and a small bursal border partial-thickness intrasubstance tear. 2. Interval development of right infraspinatus tendinosis without focal tear 3. Unchanged, No evidence of right glenoid labrum tear. 4. Unchanged Type III right acromion process morphology.
== END 2023-02-11 08:48 | disposition home or self-care (01) ==
LOC: HO.MRI 08:47
PROVIDERS: PCP Physician Assistant Medical; Visit Provider Orthopaedic Surgery
DX: Z98.890 Other specified postprocedural states (principal)
CPT/HCPCS: 73221

== ENCOUNTER 2023-03-02 14:36 | Outpatient (AMB) | payer OTHER, SELFPAY ==
--- NOTE | 2023-03-02 14:53 | A.OFFVIS_ITS ---
Intake Intake Visit Reasons: vasectomy Intake Note: Patient is present for Vasectomy Allergies No Known Allergies Allergy (Verified 01/11/23 10:42) HPI HPI Comments History of Present Illness Details Dayday is a very pleasant male. He is a patient of . He is seen for the following urologic condition - anxiety about health - Vasectomy evaluation Here for procedure Tolerated well 3 month follow-up Vasectomy procedure The patient presents for vasectomy procedure. He is currently He has fathered - 1 child, with a single partner. The youngest child is - 10 years old. His partner is aware and permissive for a vasectomy Current form of control is subcutaneous hormone. The vasectomy may be complicated due to a history of no complicating issues, inguinal hernia repair, orchidopexy, history of orchitis, orchiectomy. Patient education has been provided via AUA video, via printed information, risks of failure, recovery time, bruising and potential pain syndrome have been stressed [facility] Medical History Lumbar radiculopathy Hypogonadism Palpitations Low back pain Insomnia History of traumatic brain injury Anxiety disorder Depression Surgical History Hx of rotator cuff surgery Family History Father No problems noted. Mother No problems noted. Social History Patient Tobacco Use Status: Former Tobacco user Tobacco use type: Cigarette Current occupational status: employed Current occupation: [employer]ave[employer]/ Right hand dominant Review of Systems Const Denies chills and Denies fever(s) Card Reports no additional complaints and Denies syncope Resp Denies cough GI Denies abdominal pain and Denies heartburn Reports as per HPI and Denies change in libido Neuro Denies syncope Psych Denies change in libido Endo Denies change in libido Physical Exam Const General: cooperative, healthy appearing, comfortable and no acute distress Orientation/consciousness: patient oriented x3 HEENT Face and sinus: Yes normal facial exam Mouth: moist mucous membranes Neck Neck: Yes normal visual inspection, Yes full ROM and Yes trachea midline Chest Chest palpation & inspection: normal inspection of the chest Resp Effort & Inspection: normal respiratory effort, able to speak in complete sentences and no respiratory distress GI Inspection: Yes normal to inspection Back/Spine/Pelvis Cervical Spine: normal cervical lordosis Thoracic/Lumbar Spine: thoracic and lumbar spine normal to inspection Skin General skin exam: no rashes or lesions noted Neuro General: patient oriented x3, gait normal, tone normal and moves all extremities Extrem General: Yes normal to inspection and Yes capillary refill normal Office Procedures Vasectomy Details: Preoperative diagnosis: Anxiety regarding Postoperative diagnosis: Anxiety regarding unplanned Procedure: Bilateral vasectomy Informed consent had been completed. Preoperative and postoperative instructions were provided to the patient. The patient has transportation to home identified at the completion of the procedure. Anti-anxiolytic prescription medication had been taken after consent verification and all questions answered. Tylenol with Codeine pain medication was also provided. The penis was elevated using a rubber band that was attached to the patient's shirt. Both vasa were palpated through the skin using a 3 finger technique and the penoscrotal junction was prepped with Betadine. After Betadine application the left vas was elevated using a 3 finger grasping technique. 1% lidocaine was used to create a subdermal bubble. Approximately 2 minutes were allowed to for local anesthetic uptake. Further anesthetic was then advanced using the 25-gauge needle along the vasa in a proximal fashion. Using the sharp spreading instrument the scrotum was spread longitudinally in line with the vasa. The vasa was elevated from the scrotum using a ring clamp. Care was taken to elevate the superior portion of the vas. Using the sharp spreading instrument the vasal sheath was removed from the covering of this segment of the vas. A fresh knife blade was used to partially divide the vasal sheath and to strip the vasal sheath from the vasa. The vasa was grasped with an Addson forcep and elevated from the incision. The ring clamp was placed so it grasped the elevated vas. The vasal sheath was dissected from the vaas in a proximal and distal fashion. This allowed the blood vessels of the vasa to retract from the vasa. Using the battery-powered cautery a partial division was made in the proximal vas. The battery-powered cautery was used to cauterize the proximal end of the vas. This was then cut and allowed to retract into the vasal sheath. A clip was placed on the vasal sheath to create a fascial interposition. The distal portion of the vas was then cut in order to obtain a segment of vasa. The vasa were allowed to retract back into the scrotum. A small snap was then used to approximate the skin edges. A similar procedure was repeated on the right side. He tolerated the procedure well. Triple antibiotic was applied. A gauze was applied. An ice pack was applied to assist with minimizing swelling. Postoperative instructions were confirmed. He understands the need to continue to use control methods. A semen sample should be brought for inspection under the microscope in 10-12 weeks. CPT 14493 Vasectomy performed by: Arpit Colon Informed consent given: Yes Informed consent signed: Yes Time out checklist: patient, procedure, site marked/identified, positioning of patient, supplies available, allergies confirmed and team agrees on procedure Specimens: vas segments not sent to pathology 50033 - Vasectomy Assessment & Plan Assessment & Plan (1) Anxiety about health: Code(s): F41.8 - Other specified anxiety disorders Plan 3m f/u Patient Instructions: Imaging studies, laboratory and physical exam results were discussed and reviewed in detail. No major barriers to patient understanding were identified. An opportunity to ask questions regarding the treatment plan was provided. All questions were answered. The patient expressed understanding and agreement with the above treatment plan. The patient is aware they should contact our office by phone for worsening of their current condition or the appearance of new urologic symptoms. Compliance is encouraged with any medications and followup testing that is ordered. It is a privilege to participate in the urologic care of your patient. If you have any questions or concerns regarding treatment for the above conditions, or other urologic issues, please do not hesitate to contact me. The office telephone contact is [phone]. This note is constructed using voice recognition software. While every effort has been made to ensure accuracy baseball sewer hand errors may have been included. Yours sincerely, Dr Arpit Colon MD, [facility] - Urology Providers of Expert, Compassionate Care for the Genitourinary System Coding Level of Care Code Procedure Only Diagnoses Anxiety about health F41.8 CPT Codes Office Procedure - CPT: 64456 - Vasectomy ([id number])
== END 2023-03-02 15:17 | disposition home or self-care (01) ==
PROVIDERS: PCP Physician Assistant Medical; Visit Provider Urology
DX: Z30.2 Encounter for sterilization (principal); F41.8 Other specified anxiety disorders
CPT/HCPCS: 55250

== ENCOUNTER → 2023-03-02 14:36 | Outpatient (BNVA) | payer OTHER, SELFPAY | PROVIDERS: PCP Physician Assistant Medical; Visit Provider Urology | DX: Z30.2 Encounter for sterilization (principal); F41.8 Other specified anxiety disorders | CPT/HCPCS: 55250 ==

== ENCOUNTER 2023-03-04 14:46 | Outpatient (AMB) | payer OTHER, SELFPAY ==
[2023-03-04 15:00] VITALS: BMI 34.4
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
== END 2023-03-04 16:00 ==
PROVIDERS: PCP Physician Assistant Medical; Visit Provider Orthopaedic Surgery
DX: S46.011A Strain of muscle(s) and tendon(s) of the rotator cuff of right shoulder, initial encounter (principal); Z98.890 Other specified postprocedural states
CPT/HCPCS: 99213

== ENCOUNTER → 2023-03-04 14:46 | Outpatient (BNVA) | payer OTHER, SELFPAY | PROVIDERS: PCP Physician Assistant Medical; Visit Provider Orthopaedic Surgery ==

== ENCOUNTER 2023-04-02 11:53 | Outpatient (REF) | payer OTHER, SELFPAY ==
[2023-04-02 12:11] LABS: MANUAL DIFF FLAG NO
[2023-04-02 12:27] LABS: Basophils Absolute Auto 0.1 X10*3/uL (0.0-0.2); Basophils Percent Auto 0.8 % (0-2); Eosinophils Absolute Auto 0.5 X10*3/uL (0.0-0.4); Eosinophils Percent Auto 5.2 % (0-4); Hematocrit 44.6 % (42.0-52.0); Imm Gran Abs Auto 0.03 X10*3/uL (0.00-0.03); Imm Gran Pct Auto 0.3 % (0.0-0.4); Lymphocytes Percent Auto 19.3 % (20-40); Mean Corpuscular HGB Conc 33.6 g/dl (31.0-36.0); Mean Corpuscular Hemoglobin 29.9 pg (27.0-33.0); Mean Platelet Volume 10.4 fL (9.4-12.4); Monocytes Percent Auto 9.7 % (2-11); NRBC Pct Auto 0.4 /100WBC (0.0-0.2); Neutrophils Absolute Auto 6.5 x10*3/uL (2.0-8.3); Neutrophils Percent Auto 64.7 % (45-73); Platelet Count 221 X10*3/uL (160-400); Red Blood Count 5.01 X10*6/uL (4.60-5.80); White Blood Count 10.1 X10*3/uL (4.8-10.8)
[2023-04-02 12:50] LABS: Alanine Aminotransferase 40 U/L (0-40); Albumin Level 4.4 g/dL (3.5-5.0); Alkaline Phosphatase 51 U/L (39-117); Anion Gap 12 (12-20); Aspartate Amino Transferase 31 U/L (5-37); Bilirubin Total 0.3 mg/dL (0.0-1.0); Blood Urea Nitrogen 23 mg/dL (9-16); Calcium 9.5 mg/dL (8.4-10.2); Carbon Dioxide 29 mmol/L (22-29); Chloride 104 mmol/L (96-108); Estimated Glomerular Filt Rate > 60; Glucose Random 100 mg/dL (60-115); Potassium 4.1 mmol/L (3.3-5.1); Sodium 141 mmol/L (135-145); Total Protein 7.9 g/dL (6.5-8.0)
[2023-04-07 19:19] LABS: Estradiol Ultra Sensitive 16 pg/mL (< OR = 29)
[2023-04-09 03:28] LABS: Dihydrotestosterone 64 ng/dL (12-65)
== END 2023-04-02 11:54 | disposition home or self-care (01) ==
LOC: HO.LAB 11:53
PROVIDERS: Visit Provider Nurse Practitioner Acute Care
DX: E34.9 Endocrine disorder, unspecified (principal)
CPT/HCPCS: 36415; 80053; 82642; 82670; 84402; 84403; 85025

== ENCOUNTER 2023-05-27 08:07 | Outpatient (REF) | payer OTHER, SELFPAY ==
[2023-06-02 11:34] LABS: Testosterone, Total 367 ng/dL (250-1100)
== END 2023-05-27 08:08 | disposition home or self-care (01) ==
LOC: HO.LAB 08:07
PROVIDERS: Visit Provider Nurse Practitioner Acute Care
DX: E29.1 Testicular hypofunction (principal)
CPT/HCPCS: 36415; 84402; 84403

== ENCOUNTER 2023-05-28 11:18 | Outpatient (AMB) | payer OTHER, SELFPAY ==
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
== END 2023-05-28 13:14 | disposition home or self-care (01) ==
PROVIDERS: PCP Physician Assistant Medical; Visit Provider Orthopaedic Surgery
DX: M75.102 Unspecified rotator cuff tear or rupture of left shoulder, not specified as traumatic (principal)
CPT/HCPCS: 99213

== ENCOUNTER → 2023-05-28 11:18 | Outpatient (BNVA) | payer OTHER, SELFPAY | PROVIDERS: PCP Physician Assistant Medical; Visit Provider Orthopaedic Surgery ==

== ENCOUNTER 2023-07-21 12:49 | Outpatient (AMB) | payer OTHER, SELFPAY ==
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
== END 2023-07-21 13:31 | disposition home or self-care (01) ==
PROVIDERS: PCP Physician Assistant Medical; Visit Provider Urology
DX: F41.8 Other specified anxiety disorders (principal)
CPT/HCPCS: 99213

== ENCOUNTER → 2023-07-21 12:49 | Outpatient (BNVA) | payer OTHER, SELFPAY | PROVIDERS: PCP Physician Assistant Medical; Visit Provider Urology ==

== ENCOUNTER 2023-07-26 08:57 | Outpatient (AMB) | payer OTHER, SELFPAY ==
[2023-07-26 10:11] VITALS: BP 120/80; PULSE 65; TEMP 36.7; O2SAT 97; BMI 34.0
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
== END 2023-07-26 12:06 | disposition home or self-care (01) ==
PROVIDERS: PCP Physician Assistant Medical; Visit Provider Registered Nurse Emergency
DX: S99.911A Unspecified injury of right ankle, initial encounter (principal)
CPT/HCPCS: 99214

== ENCOUNTER 2023-07-26 10:43 | Outpatient (REF) | payer OTHER, SELFPAY ==
--- NOTE | ~2023-07-26 | XR_ITS ---
EXAMINATION: XR ANKLE, RIGHT CLINICAL INFORMATION: Unspecified injury of right ankle, initial encounter . COMPARISON: None available. TECHNIQUE: AP, lateral, and mortise views of the right ankle. FINDINGS: Ankle joint effusion. Bone mineralization is normal. Soft tissue swelling at the ankle. Mild asymmetric narrowing along the medial aspect of the ankle mortise with possible subtle flattening along the medial aspect of the talar dome. Small ossicle posterior to the talus on the lateral view. XR/XR ankle RT min 3V IMPRESSION: 1. Mild asymmetric narrowing along the medial aspect of the ankle mortise with possible subtle flattening along the medial aspect of the talar dome. 2. Small ossicle posterior to the talus on the lateral view. 3. Recommend follow-up imaging in 10-14 days if fracture is suspected. This study was presented today 07/26/2023 for interpretation. Stat results provided at this time as requested by referring provider.
== END 2023-07-26 10:44 | disposition home or self-care (01) ==
LOC: HO.HMGCX 10:43
PROVIDERS: Visit Provider Registered Nurse Emergency
DX: M25.471 Effusion, right ankle (principal)
CPT/HCPCS: 73610

== ENCOUNTER 2023-07-29 10:02 | Outpatient (AMB) | payer OTHER, SELFPAY ==
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
[2023-07-29 10:09] VITALS: BMI 25.8
== END 2023-07-29 10:29 | disposition home or self-care (01) ==
LOC: HO.HOS 10:03
PROVIDERS: PCP Physician Assistant Medical; Visit Provider Physician Assistant
DX: S92.101A Unspecified fracture of right talus, initial encounter for closed fracture (principal); S93.401A Sprain of unspecified ligament of right ankle, initial encounter
CPT/HCPCS: 99213

== ENCOUNTER → 2023-07-29 10:02 | Outpatient (BNVA) | payer OTHER, SELFPAY | PROVIDERS: PCP Physician Assistant Medical; Visit Provider Physician Assistant ==

== ENCOUNTER 2023-07-30 09:14 | Outpatient (REF) | payer OTHER, SELFPAY ==
--- NOTE | ~2023-07-30 | CT_ITS ---
EXAMINATION: CT OF THE RIGHT ANKLE WITHOUT CONTRAST CLINICAL INDICATION: Unspecified fracture of right talus, initial encounter. COMPARISON: Radiographs dated 07/26/2019. TECHNIQUE: Multidetector volumetric imaging was obtained through the right ankle without contrast. Multiplanar reformatted images in coronal and sagittal orientations were submitted. This CT examination was performed using dose optimization techniques as appropriate, variously including the following: *Automated exposure control *Adjustment of mA and/or kV according to patient size (this includes techniques or standardized protocols for targeted exams where dose is matched to indication/reason for exam; i.e. extremities or head) *Use of iterative reconstruction technique DLP: 196.09 mGy-cm FINDINGS: There is an acute, comminuted fracture through the lateral process of the talus with involvement of the lateral talar neck and intra-articular extension at the posterior facet. The subarticular fracture at the posterior facet propagates medially to the level of the far medial margin of the posterior facet. The dominant fragment is nondisplaced, though a few small comminuted fragments at the medial and lateral margins are displaced by 1-2 mm, particularly anterolaterally near the origin of the anterior talofibular ligament. A loose ossific fragment is present within the anterolateral gutter. There is subtle focal cortical irregularity at the posterolateral margin of the posterior facet of the calcaneus over an area measuring 6 x 7 mm with cortical depression by 1-2 mm. No significant displacement. No additional fractures are identified. Distal tibia and fibula are intact. Cuneiforms, cuboid, and navicular are intact. The foot joints are normal. There is a bone island within the body of the calcaneus. There is soft tissue swelling at the ankle and hindfoot with subcutaneous edema. Tendons appear intact. The ligaments are not well assessed. Ankle and subtalar joint effusions are noted. 2 punctate ossific fragments are present within the posterior recess of the subtalar joint, each measuring [address]/CT ankle RT wo IV con IMPRESSION: 1. Comminuted, nondisplaced fracture of the lateral process of the talus with intra-articular extension at the posterior facet of the subtalar joint and at the anterolateral margin of the talus at the talocrural joint. Small loose bodies in the anterolateral gutter and in the posterior recess of the subtalar joint. 2. Subtle impaction fracture at the posterolateral margin of the posterior facet of the calcaneus. 3. Ankle and subtalar joint effusions.
== END 2023-07-30 09:15 | disposition home or self-care (01) ==
LOC: HO.CT 09:14
PROVIDERS: Visit Provider Physician Assistant
DX: S92.101A Unspecified fracture of right talus, initial encounter for closed fracture (principal)
CPT/HCPCS: 28430; 29405; 73700

== ENCOUNTER 2023-07-30 12:26 | Outpatient (AMB) | payer OTHER, SELFPAY ==
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
== END 2023-07-30 13:18 | disposition home or self-care (01) ==
PROVIDERS: PCP Physician Assistant Medical; Visit Provider Physician Assistant
DX: S92.101A Unspecified fracture of right talus, initial encounter for closed fracture (principal); S93.401A Sprain of unspecified ligament of right ankle, initial encounter
CPT/HCPCS: 28430; 29405; 99213

== ENCOUNTER 2023-08-27 09:09 | Outpatient (REF) | payer OTHER, SELFPAY ==
--- NOTE | ~2023-08-27 | XR_ITS ---
EXAMINATION: XR ANKLE, RIGHT CLINICAL INFORMATION: Pain. COMPARISON: CT right ankle 07/30/2023. TECHNIQUE: AP, lateral, and mortise views of the right ankle. FINDINGS: Redemonstration of comminuted fracture of the lateral process of the talus, not significantly changed compared to recent CT. Additional subtle impaction fracture at the posterolateral margin of the posterior facet of the calcaneus is best visualized on prior CT. Ankle mortise is congruent. No new fractures. No unexpected foreign bodies. XR/XR ankle RT min 3V IMPRESSION: Talar and calcaneal fractures, not significantly changed and best characterized on recent CT.
== END 2023-08-27 09:10 | disposition home or self-care (01) ==
LOC: HO.HOSX 09:09
PROVIDERS: Visit Provider Orthopaedic Surgery
DX: M25.571 Pain in right ankle and joints of right foot (principal)
CPT/HCPCS: 73610

== ENCOUNTER 2023-08-27 09:42 | Outpatient (AMB) | payer OTHER, SELFPAY ==
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
[2023-08-27 09:56] VITALS: BMI 25.8
== END 2023-08-27 10:27 | disposition home or self-care (01) ==
PROVIDERS: PCP Physician Assistant Medical; Visit Provider Orthopaedic Surgery
DX: S92.101A Unspecified fracture of right talus, initial encounter for closed fracture (principal)
CPT/HCPCS: 99213

== ENCOUNTER 2023-09-24 09:05 | Outpatient (REF) | payer OTHER, SELFPAY ==
--- NOTE | ~2023-09-24 | XR_ITS ---
EXAMINATION: XR ANKLE, RIGHT CLINICAL INFORMATION: Ankle pain COMPARISON: Ankle radiographs 08/26/[address] ankle 07/30/2023. TECHNIQUE: AP, lateral, and mortise views of the right ankle. FINDINGS: Again seen is a comminuted fracture of the talus with persistent lucency of the fracture margins. Previously seen calcaneal fracture is better appreciated on prior CT. Alignment is unchanged. Ankle mortise is congruent. Soft tissues are unremarkable. No joint effusion. XR/XR ankle RT min 3V IMPRESSION: Again seen is a comminuted fracture of the talus with persistent lucency of the fracture margins. Previously seen calcaneal fracture is better appreciated on prior CT. Alignment is unchanged.
== END 2023-09-24 09:06 | disposition home or self-care (01) ==
LOC: HO.HOSX 09:05
PROVIDERS: Visit Provider Orthopaedic Surgery
DX: M25.571 Pain in right ankle and joints of right foot (principal)
CPT/HCPCS: 73610

== ENCOUNTER 2023-09-24 10:50 | Outpatient (AMB) | payer OTHER, SELFPAY ==
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
[2023-09-24 11:48] VITALS: BMI 25.1
== END 2023-09-24 12:30 | disposition home or self-care (01) ==
PROVIDERS: PCP Physician Assistant Medical; Visit Provider Orthopaedic Surgery
DX: S92.101A Unspecified fracture of right talus, initial encounter for closed fracture (principal)
CPT/HCPCS: 99024

== ENCOUNTER 2023-10-07 07:30 | Emergency (ER) | payer OTHER, SELFPAY ==
--- NOTE | ~2023-10-07 | XR_ITS ---
EXAMINATION: XR CHEST CLINICAL INFORMATION: Chest pain COMPARISON: None available. TECHNIQUE: Single view of the chest was obtained. FINDINGS: No focal consolidation. No pneumothorax. Trachea is midline. Cardiac mediastinal silhouette is not enlarged. No large pleural effusion. Osseous structures are intact. Soft tissues are unremarkable. XR/XR chest 1V IMPRESSION: No acute cardiopulmonary process.
[2023-10-07 07:41] VITALS: BP 129/86; PULSE 79; RESP 16; TEMP 36.9; O2SAT 97; BMI 24.4
--- NOTE | 2023-10-07 07:46 | ECG_ITS ---
Test Reason : CHEST PAINS Blood Pressure : / mmHG Vent. Rate : 079 BPM Atrial Rate : 079 BPM P-R Int : 144 ms QRS Dur : 090 ms QT Int : 364 ms P-R-T Axes : 072 050 050 degrees QTc Int : 417 ms Normal sinus rhythm Normal ECG When compared with ECG of 05-OCT-2017 14:00, No significant change was found Referred By: Generic ED Physician Electronically Signed By:Jefe Doyle
[2023-10-07 08:17] LABS: MANUAL DIFF FLAG NO
[2023-10-07 08:23] LABS: Basophils Absolute Auto 0.1 X10*3/uL (0.0-0.2); Basophils Percent Auto 1.1 % (0-2); Eosinophils Absolute Auto 0.2 X10*3/uL (0.0-0.4); Eosinophils Percent Auto 2.1 % (0-4); Hematocrit 47.4 % (42.0-52.0); Hemoglobin 15.9 g/dl (14.0-18.0); Imm Gran Abs Auto 0.02 X10*3/uL (0.00-0.03); Imm Gran Pct Auto 0.3 % (0.0-0.4); Lymphocytes Absolute Auto 1.4 X10*3/uL (1.2-4.9); Lymphocytes Percent Auto 19.5 % (20-40); Mean Corpuscular HGB Conc 33.5 g/dl (31.0-36.0); Mean Corpuscular Hemoglobin 30.3 pg (27.0-33.0); Mean Corpuscular Volume 90.3 fL (80.0-98.0); Mean Platelet Volume 10.5 fL (9.4-12.4); Monocytes Absolute Auto 0.8 X10*3/uL (0.1-1.2); Monocytes Percent Auto 10.9 % (2-11); Neutrophils Absolute Auto 4.7 x10*3/uL (2.0-8.3); Neutrophils Percent Auto 66.1 % (45-73); Platelet Count 212 X10*3/uL (160-400); Red Blood Count 5.25 X10*6/uL (4.60-5.80); Red Cell Distribution Width 14.4 % (11.0-16.0); White Blood Count 7.1 X10*3/uL (4.8-10.8)
[2023-10-07 08:35] LABS: Alanine Aminotransferase 18 U/L (0-40); Albumin Level 4.4 g/dL (3.5-5.0); Alkaline Phosphatase 39 U/L (39-117); Anion Gap 14 (12-20); Aspartate Amino Transferase 19 U/L (5-37); Bilirubin Direct 0.1 mg/dL (0.0-0.5); Bilirubin Total 0.5 mg/dL (0.0-1.0); Blood Urea Nitrogen 11 mg/dL (9-16); Calcium 9.4 mg/dL (8.4-10.2); Carbon Dioxide 28 mmol/L (22-29); Chloride 104 mmol/L (96-108); Creatinine Clr Calc Pharmacy 92.4; Estimated Glomerular Filt Rate > 60; Glucose Random 102 mg/dL (60-115); Potassium 4.5 mmol/L (3.3-5.1); Sodium 141 mmol/L (135-145); Total Protein 7.7 g/dL (6.5-8.0)
[2023-10-07 08:42] LABS: Troponin-I High Sensitivity < 2.7 ng/L (<3.5-35.0)
[2023-10-07 09:54] VITALS: PULSE 65
[2023-10-07 09:56] VITALS: BP 119/75; PULSE 63; RESP 14; TEMP 36.6; O2SAT 99
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
[2023-10-07 10:00] VITALS: BP 119/75; PULSE 63; RESP 14; TEMP 36.6; O2SAT 99
[2023-10-07 11:08] VITALS: BP 104/54; PULSE 60; RESP 14; TEMP 36.8; O2SAT 97
[2023-10-07 11:18] VITALS: BP 104/54; PULSE 60; RESP 14; TEMP 36.8; O2SAT 97
== END 2023-10-07 11:18 | disposition home or self-care (01) ==
PROVIDERS: Emergency Provider Emergency Medicine; PCP Physician Assistant Medical
DX: R07.89 Other chest pain (principal); F41.9 Anxiety disorder, unspecified; R06.02 Shortness of breath; Z79.890 Hormone replacement therapy; Z79.899 Other long term (current) drug therapy
CPT/HCPCS: 36415; 71045; 80048; 80076; 84484; 85025; 93005; 99283; 99285

== ENCOUNTER → 2023-10-07 07:46 | Outpatient (BNV) | payer OTHER, SELFPAY | PROVIDERS: Emergency Provider Emergency Medicine; PCP Physician Assistant Medical; Visit Provider Internal Medicine Cardiovascular Disease | DX: R07.9 Chest pain, unspecified (principal) | CPT/HCPCS: 93010 ==

== ENCOUNTER 2023-10-22 08:23 | Outpatient (REF) | payer OTHER, SELFPAY ==
--- NOTE | ~2023-10-22 | XR_ITS ---
EXAMINATION: XR FOOT, RIGHT CLINICAL INFORMATION: Pain COMPARISON: Clinical radiographs 08/27/2023 and 09/16/2023 TECHNIQUE: 3 views of the foot FINDINGS: Decreasing conspicuity of the previously seen comminuted talar fracture with fracture margins difficult to delineate. Previously seen calcaneal fracture which is not well discerned. Joint spaces are maintained. Small tibiotalar effusion. Soft tissues are unremarkable. XR/XR foot RT min 3V IMPRESSION: 1. Decreasing conspicuity of the previously seen comminuted talar fracture with fracture margins difficult to delineate. Previously seen calcaneal fracture is not well discerned. 2. Small tibiotalar joint effusion.
== END 2023-10-22 08:24 | disposition home or self-care (01) ==
LOC: HO.HOSX 08:23
PROVIDERS: Visit Provider Orthopaedic Surgery
DX: S92.101D Unspecified fracture of right talus, subsequent encounter for fracture with routine healing (principal)
CPT/HCPCS: 73630

== ENCOUNTER 2023-10-22 11:01 | Outpatient (AMB) | payer OTHER, SELFPAY ==
--- NOTE | 2023-10-22 11:09 | MHC.OFFVIS ---
Intake Visit Reasons: OV- right talus fx, follow up Intake Note: Dayday is a 38 year old male who presents today for a follow up of his Right Talus Fx DOI: 07/25/23. He remains in a tall walking boot & is fully weight bearing at this time. He expresses last week was the first week he started walking with full weight so he was having some soreness but states it no longer is sore. He feels more relieved when he doesn't have the boot on. Allergies No Known Allergies Allergy (Verified 10/22/23 11:18) HPI HPI OV- right talus fx, follow up: Details: Dayday is a 38 year old male who presents today for a follow up of his Right Talus Fx DOI: 07/25/23. He remains in a tall walking boot & is fully weight bearing at this time. He expresses last week was the first week he started walking with full weight so he was having some soreness but states it no longer is sore. He feels more relieved when he doesn't have the boot on. PFSH Medical History Lumbar radiculopathy Hypogonadism Palpitations Low back pain Insomnia History of traumatic brain injury Anxiety disorder Depression Surgical History Hx of rotator cuff surgery Family History Father No problems noted. Mother No problems noted. Social History Patient Tobacco Use Status: Former Tobacco user Tobacco use type: Cigarette Substance Use Type: Marijuana and Painkillers Current occupational status: employed Current occupation: [employer]ave[employer]/ Right hand dominant Physical Exam Extrem Other: Normal exam There is no tenderness to palpation with extensive and deep palpation of the right talus. There is no soft tissue swelling. Results Reviewed Results Reviewed: I personally reviewed relevant radiographs. Compared to prior radiographs there is no evidence of fracture I and I can not see the previously identified fracture line in the right talus. Assessment & Plan Assessment & Plan (1) Fracture of right talus: Code(s): S92.101A - Unspecified fracture of right talus, initial encounter for closed fracture Category: Medical Qualifiers: Encounter type: initial encounter Fracture type: closed Talus location: unspecified portion of talus Fracture alignment: nondisplaced Qualified Code(s): S92.101A - Unspecified fracture of right talus, initial encounter for closed fracture Plan: Fracture of the right talus. He seems to have done well with nonoperative treatment and he appears healed without pain. I recommend return to street shoes and he will let me know if he develops pain but at this point he continues to be pain free. Orders: Orders XR foot RT min 3V Today S92.101A - Unspecified fracture of right talus, initial encounter for closed fracture Coding Level of Care Code Est Pt Level 3 (17452) Diagnoses Closed nondisplaced fracture of right talus, unspecified portion of talus, initial encounter S92.101A Encounter type: initial encounter Fracture type: closed Talus location: unspecified portion of talus Fracture alignment: nondisplaced
== END 2023-10-22 11:32 | disposition home or self-care (01) ==
PROVIDERS: PCP Physician Assistant Medical; Visit Provider Orthopaedic Surgery
DX: S92.101A Unspecified fracture of right talus, initial encounter for closed fracture (principal)
CPT/HCPCS: 99024

== ENCOUNTER 2023-12-30 11:50 | Outpatient (REF) | payer OTHER, SELFPAY ==
[2023-12-30 13:13] LABS: Basophils Absolute Auto 0.1 X10*3/uL (0.0-0.2); Basophils Percent Auto 0.7 % (0-2); Eosinophils Absolute Auto 0.1 X10*3/uL (0.0-0.4); Eosinophils Percent Auto 0.9 % (0-4); Hematocrit 45.5 % (42.0-52.0); Hemoglobin 15.9 g/dl (14.0-18.0); Imm Gran Abs Auto 0.02 X10*3/uL (0.00-0.03); Imm Gran Pct Auto 0.2 % (0.0-0.4); Lymphocytes Absolute Auto 1.6 X10*3/uL (1.2-4.9); Lymphocytes Percent Auto 18.2 % (20-40); MANUAL DIFF FLAG NO; Mean Corpuscular HGB Conc 34.9 g/dl (31.0-36.0); Mean Corpuscular Hemoglobin 31.5 pg (27.0-33.0); Mean Corpuscular Volume 90.1 fL (80.0-98.0); Mean Platelet Volume 10.7 fL (9.4-12.4); Monocytes Absolute Auto 0.7 X10*3/uL (0.1-1.2); Monocytes Percent Auto 7.8 % (2-11); Neutrophils Absolute Auto 6.3 x10*3/uL (2.0-8.3); Neutrophils Percent Auto 72.2 % (45-73); Platelet Count 186 X10*3/uL (160-400); Red Blood Count 5.05 X10*6/uL (4.60-5.80); Red Cell Distribution Width 13.8 % (11.0-16.0); White Blood Count 8.8 X10*3/uL (4.8-10.8)
[2024-01-01 02:10] LABS: EBV-VCA IgM Ab <36.00 U/mL; Epstein Barr Virus Early Ag Ab <9.00 U/mL
[2024-01-01 06:34] LABS: Lyme Abs Screen <0.90 index
[2024-01-01 06:38] LABS: DHEA Sulfate 206 mcg/dL (93-415)
[2024-01-03 19:03] LABS: Spotted Fever Group IgG Not Detected (Not Detected); Spotted Fever Group IgM Not Detected (Not Detected); Typhus Fever Group IgG Not Detected (Not Detected); Typhus Fever Group IgM Not Detected (Not Detected)
[2024-01-04 14:28] LABS: Babesia IgG <1:64 titer (<1:64); Babesia IgM <1:20 titer (<1:20)
[2024-01-05 05:54] LABS: A. Phagocytophilum Ab IgM <1:20 (<1:20); E. Chaffeensis Ab IgG <1:64 (<1:64); E. Chaffeensis Ab IgM <1:20 (<1:20); Interpretation PAST INFECTION
[2024-01-06 03:04] LABS: Estradiol Ultra Sensitive 21 pg/mL (< OR = 29)
[2024-01-07 01:48] LABS: Dihydrotestosterone 75 ng/dL (12-65)
[2024-01-07 14:53] LABS: Testosterone, Free 161.1 pg/mL (35.0-155.0); Testosterone, Total 739 ng/dL (250-1100)
== END 2023-12-30 11:51 | disposition home or self-care (01) ==
LOC: HO.LAB 11:50
PROVIDERS: PCP Physician Assistant Medical; Visit Provider Family Medicine
DX: M79.18 Myalgia, other site (principal); E29.1 Testicular hypofunction
CPT/HCPCS: 82627; 82642; 82670; 84402; 84403; 85025; 86611; 86617; 86618; 86619; 86663; 86664; 86665; 86666; 86753; 86757

== ENCOUNTER 2023-12-30 12:52 | Emergency (ER) | payer OTHER, SELFPAY ==
--- NOTE | ~2023-12-30 | XR_ITS ---
EXAMINATION: XR CHEST CLINICAL INFORMATION: Syncope. COMPARISON: Chest radiograph dated October 07, 2023. TECHNIQUE: 2 views of the chest were obtained. FINDINGS: The heart is normal in size. The lungs are clear. Pleural spaces are clear. No pneumothorax. No acute osseous abnormality. XR/XR chest 2V IMPRESSION: No acute cardiopulmonary disease. Stable appearance of the heart and lungs. Electronically signed by: Isaías Patel DO 12/30/2023 02:20 PM EDT
[2023-12-30 12:56] VITALS: BP 80/40; PULSE 46; RESP 16; TEMP 36.8; O2SAT 99; BMI 25.1
[2023-12-30 13:02] LABS: Glucose, Whole Blood 104 mg/dL (60-115)
[2023-12-30 13:04] VITALS: BP 102/61; PULSE 56; RESP 14; TEMP 36.8; O2SAT 98
[2023-12-30 13:05] VITALS: O2SAT 98
--- NOTE | 2023-12-30 13:36 | ED.SYNCOPE ---
HPI - Syncope General Chief Complaint: Syncope Stated Complaint: Outpatient response Time Seen by Provider: 12/30/23 13:08 Source: patient, family and other Mode of arrival: wheelchair Limitations: no limitations History of Present Illness HPI narrative: She was 38-year-old male was here to get blood work. Patient states he does pass out when he gets blood work this time he was out he states for minutes he woke up in cold sweat with nausea and was having some trouble with speech. All these symptoms have resolved in the time that I seeing the patient. Patient denies fevers chills cough nausea vomiting or diarrhea at this time. He states his swelling has resolved patient states he is otherwise healthy does take Lexapro. His is at bedside patient is able to get up and walk around the room he is very afraid of needles and does not want to get any more blood work or fluids he had did not eat lunch but states he did have breakfast today. MD complaint: loss of consciousness Related Data Previous Rx's ?Medication ?Instructions ?Recorded Knee scooter #1 ea 08/27/23 hydroxyzine HCl 25 mg tablet 25 mg PO Q8H PRN anxiety #90 tabs 10/07/23 trazodone 50 mg tablet 50 mg PO BEDTIME PRN insomnia #60 10/07/23 tabs Allergies Allergy/AdvReac Type Severity Reaction Status Date / Time No Known Allergies Allergy Verified 12/30/23 13:01 Review of Systems Review of Systems: Review of systems: General: Patient denies any fever chills recent illness or falls Musculoskeletal: Denies back pain or body aches or other injuries HEENT: denies headache, runny nose, ear pain Respiratory: denies shortness of breath, cough Cardiovascular: no chest pain or palpitations : denies dysuria, frequency Abdomen: no nausea vomiting denies abdominal pain Extremities: no swelling, no pain Skin: no diaphoresis Yes all other systems are reviewed and are negative PMFSH Past Medical History Medical History Lumbar radiculopathy Hypogonadism Palpitations Low back pain Insomnia History of traumatic brain injury Anxiety disorder Depression Surgical History Hx of rotator cuff surgery Family History Family History Father No problems noted. Mother No problems noted. Social History Social History Patient Tobacco Use Status: Former Tobacco user Tobacco use type: Cigarette Smoked in Last 30 Days: No Use of substances other than those prescribed or required for medical reasons: No Substance Use Type: Marijuana and Painkillers Advance Directives: No Do you have a plan to hurt others: No Plan Current occupational status: employed Current occupation: [employer]ave[employer]/ Right hand dominant Physical Exam Vital Signs: Vital Signs: Last Vital Signs Temp 98.3 F 12/30/23 13:04 Pulse 56 12/30/23 13:04 Resp 14 12/30/23 13:04 BP 102/61 12/30/23 13:04 Pulse Ox 98 12/30/23 13:05 O2 Del Method Room Air 12/30/23 13:05 BMI result Body Mass Index 25.1 Neurological exam: CN II- XII tested. Patient is alert and oriented to person place and time. Patient has no dysphagia or dysarthia, denies good vision in all four vision pascual no nystagmus on exam, good strength to upper and lower extremities with normal reflexes to brachioradialis, wrist, patella and achilles. Negative romberg, good finger to nose and heel to au. General: Well-appearing well-nourished in no signs of distress HEENT: Normocephalic atraumatic Neck: No signs of JVD, no masses no tenderness or lymphadenopathy Cardiovascular: Regular rate and rhythm Respiratory: Clear to auscultation bilaterally Abdomen: Soft nontender no masses Extremities: Normal pedal pulses no signs of edema Skin: Dry warm no rashes Back: No tenderness full ROM Course Course Course Narrative: Without any interventions the patient's blood pressure continues to improve his now 112 systolic with a map of 75 I do think the patient safe to go home he was able to ambulate in the room I will discharge home Medical Decision Making Medical Decision Making MDM Narrative: Patient was very hypotensive when he came in but has improved now he understands but does not want to get another blood stick or an IV. As it as a reason that he initially came in I will feed the patient give some fluids make sure he is safe before sending the patient home. Differential Diagnosis Differential Diagnoses: The differential diagnosis associated with the presentation includes Syncope likely vasovagal dehydration electrolyte abnormality anemia Lab Data [facility] Lab Attestation statement: I reviewed the patient's lab results. Labs: Lab Results 12/30/23 Range/Units 12:58 POC Glucose 104 (60-115) mg/dL Independent Interpretation I performed an independent interpretation of an: EKG and Plain X-Ray Interpretation: Rate 48 sinus bradycardia normal intervals no signs of ischemia no change from previous interpreted by me Discharge Plan Discharge Clinical Impression: Syncope, vasovagal Patient Disposition: Home, Self-Care Instructions: Syncope (DC) Additional Instructions: You were seen today in the emergency department after passing getting a blood draw. You initially had low blood pressure which improved while he was sitting in the room. Please call follow up with your doctor if you have any other concerns please return to emergency department Prescriptions: No Action hydroxyzine HCl 25 mg tablet 25 mg PO Q8H PRN (Reason: anxiety) Qty: 90 0RF trazodone 50 mg tablet 50 mg PO BEDTIME PRN (Reason: insomnia) Qty: 60 0RF (DME) Knee scooter See Rx Instructions .ROUTE .MEDSUPPLY Qty: 1 0RF Rx Instructions: As directed. Duration 99 days Print Language: Croatian
[2023-12-30 14:26] VITALS: BP 106/59; PULSE 68; RESP 17; O2SAT 97
[2023-12-30 14:51] VITALS: BP 106/59; PULSE 68; RESP 17; TEMP 36.4; O2SAT 97
--- NOTE | 2023-12-31 | ECG_ITS ---
Test Reason : SYNCOPE Blood Pressure : / mmHG Vent. Rate : 048 BPM Atrial Rate : 048 BPM P-R Int : 148 ms QRS Dur : 106 ms QT Int : 452 ms P-R-T Axes : 079 065 065 degrees QTc Int : 403 ms Sinus bradycardia Possible Left atrial enlargement Borderline ECG When compared with ECG of 07-OCT-2023 07:32, Vent. rate has decreased BY 31 BPM Referred By: Nilton Jain Electronically Signed By:AMINA PHILLIP
== END 2023-12-30 14:53 | disposition home or self-care (01) ==
PROVIDERS: Emergency Provider Student in an Organized Health Care Education/Training Program
DX: R55 Syncope and collapse (principal); Z79.899 Other long term (current) drug therapy; R00.1 Bradycardia, unspecified
CPT/HCPCS: 71046; 82947; 93005; 99283; 99284

== ENCOUNTER 2025-01-25 11:47 | Outpatient (REF) | payer OTHER, SELFPAY ==
[2025-01-25 12:06] LABS: MANUAL DIFF FLAG NO
[2025-01-25 13:08] LABS: Hematocrit 48.7 % (42.0-52.0); Hemoglobin 16.0 g/dl (14.0-18.0); Imm Gran Abs Auto 0.03 X10*3/uL (0.00-0.03); Imm Gran Pct Auto 0.4 % (0.0-0.4); Lymphocytes Absolute Auto 4.6 X10*3/uL (1.2-4.9); Mean Corpuscular HGB Conc 32.9 g/dl (31.0-36.0); Mean Corpuscular Hemoglobin 30.7 pg (27.0-33.0); Mean Corpuscular Volume 93.3 fL (80.0-98.0); NRBC Abs Auto 0.000 X10*3/uL (0.0-0.012); NRBC Pct Auto 0.0 /100WBC (0.0-0.2); Platelet Count 281 X10*3/uL (160-400); Red Blood Count 5.22 X10*6/uL (4.60-5.80); White Blood Count 8.4 X10*3/uL (4.8-10.8)
[2025-01-25 14:35] LABS: Prostate Specific Antigen 0.30 ng/mL (<0.05-4.0)
--- OUTSIDE RECORDS SUMMARY | 2025-01-25 14:48 | XMS_ITS | Clinical Summary ---
Author Organization [facility] Address [address] [place] [id number] Phone Care Team Providers Care Manager Clinical Pharmacy Name Role Phone Karen Sotelo Primary Care Provider Allergies Active Allergy Reactions Criticality Noted Date Comments Oxycodone-Acetaminophen 11/21/2018 Medications influenza quadrivalent 2017-18, 4 yr+,, PF, (FLUCELVAX QUAD) 60 mcg (15 mcg x 4)/0.5 mL IM syringe 04/02/2017 Active buPROPion (WELLBUTRIN SR) 100 MG SR 12 hr tablet Take 100 mg by mouth 2 (two) times a day. Active risperiDONE (RISPERDAL) 1 MG tablet Take 0.5 mg by mouth 2 (two) times a day. Active Active Problems Problem Noted Date Diagnosed Date Low testosterone in male 11/21/2018 Assessment & Plan (12/06/2018 10:04 AM EDT): His testosterone levels have now normalized that I cannot legally prescribe testosterone therapy if he is not hypogonadal. The only thing he can do is just wait it out and his testosterone levels to improve luteinizing hormone follicular stimulating hormones she would improve. He does have complain of fatigue and decreased libido but my hands are tied I cannot prescribe the medications. I therefore will not give him a follow-up appointment. Again recall the prolactin levels are slightly elevated he is been off risperidone for 1 month and I suspect that these levels should normalize off the medication. Assessment & Plan (11/21/2018 11:52 AM EDT): Is a patient that was found to have low total testosterone levels free testosterone was in the low normal reference range. He is been using risperidone which can result in elevated prolactin levels is been on this medication for approximately 6 months so I would like to check prolactin levels. On physical exam he does not gynecomastia or galactorrhea. He is used opioids in the past. He has used cocaine morphine and anabolic hormones. He used testosterone for approximately 1 year. He also received at least 1 naltrexone injection. So he could have had a hypothalamic pituitary gonadal axis dysfunction from the use of these agents. We have to check luteinizing hormone follicular stimulating hormones. I will also repeat free and total testosterone levels. I have gone ahead and requested lipid panel and PSA levels in case we do treat. CBC levels have been within the normal reference range. I will give the patient a follow-up appointment with in 4 weeks time. Family History Medical History Relation Comments No Known Problems Father No Known Problems Mother Relation Status Comments Father Alive Mother Alive Social History Tobacco Use Types Packs/Day Years Used Date Smoking Tobacco: Former Cigarettes 1 5 Smokeless Tobacco: Current Snuff Alcohol Use Standard Drinks/Week Comments Not Currently 0 (1 standard drink = 0.6 oz pur e alcohol) Education Answer Date Recorded Are you interested in more education? Not on mily e 07/24/2022 Are you concerned about learning? Not on file 07/24/2022 No 07/24/2022 No 07/24/2022 Digital Access Answer Date Recorded No 08/22/2022 No 08/22/2022 No 08/22/2022 Reliable internet access at home? Not on file 08/22/2022 Device with a working camera? Not on file Sex and Gender Information Value Date Recorded Sex Assigned at Not on file Legal Sex Male 9:21 AM EDT Gender Identity Not on file Sexual Orientation Not on file Last Filed Vital Signs Vital Sign Reading Time Taken Comments Blood Pressure 112/60 12/06/2018 9:41 AM EDT Pulse 65 12/06/2018 9:41 AM EDT Temperature - - Respiratory Rate - - Oxygen Saturation 99% 12/06/2018 9:4 1 AM EDT Inhaled Oxygen Concentration - - Weight 82.2 kg (181 lb 3.2 oz) 12/07/19 9:41 AM EDT with boots Height 176.9 cm (5' 9.65 ) 12/06/2018 9 :41 AM EDT Body Mass Index 26.26 12/06/2018 9:41 AM EDT Plan of Treatment Health Maintenance Due Date Last Done Comments Adult Td,Tdap Booster 1987 DEPRESSION SCREENING 1999 SMOKING Hx and SMOKELESS TOB ACCO SCREENING 01/20/2000 HEPATITIS C SCREENING 2005 HIV ONE-TIME SCREENING (18-6 5 YEARS) 2005 LIPID PANEL 11/23/2023 11/22/2018 INFLUENZA VACCINE (#1) 2024 COVID-19 VACCINE (2024-2 6 season) 2024 HEPATITIS A VACCINES Aged Out No long er eligible based on patient's age to complete this topic HIB VACCINES Aged Out No longer eligi ble based on patient's age to complete this topic MENINGOCOCCAL VACCINES (ACWY) Aged Out No longer eligible based on patient's age to complete this topic MENINGOCOCCAL VACCINES (B) Aged Out N o longer eligible based on patient's age to complete this topic PNEUMOCOCCAL VACCINES (0-49 years) Aged Out No longer eligible based on patient's age to complete this topic Medical Devices Not on file Procedures Procedure Name Priority Date/Time Associated Diagnosis Comments LIPID PANEL Routine 11/22/2018 8:17 AM EDT Low testosterone in male from Last 3 Months or Most Recently Relevant to Health Maintenance Results * (ABNORMAL) Lipid panel (11/22/2018 8:17 AM EDT) HDL 61 mg/dL [facility] Comment: Interpretation <40 mg/dL: Low HDL cholesterol (major risk factor for CHD) Greater than or equal to 60 mg/dL: High HDL cholesterol ( negative risk factor for CHD) HDL - cholesterol is affected by a number of factors, e.g. smoking, excerise, hormones, sex and age. CHOLESTEROL 142 0 - 240 mg/dL [facility] TRIGLYCERIDES 43 30 - 160 mg/dL [facility] LDL 72 50 - 129 mg/dL [facility] Comment: LDL levels in terms of risk for coronary heart disease: <100 mg/dL: Optimal 100-129 mg/dL: Near or above optimal 130-159 mg/dL: Borderline high 160-189 mg/dL: High >190 mg/dL: Very High CARDIAC RISK RATIO 2.3(L) 3.4 - 5.0 [facility] Blood 11/22/2018 8:17 AM EDT 11/22/2018 8:28 AM EDT us Manpreet Lucaso DO LAB BLOOD ORDERABLES Final Resul t [address] [address] from Last 3 Months or Most Recently Relevant to Health Maintenance Insurance [facility] NON [place]SPG [place] Dream home renovations [employer] [facility] NON NSPG [place] Dream home renovations [employer] [place] NON NSPG PCP [place] [employer] [place] NON NSPG PCP S[place] [employer] [place] NON NSPG PCP SILVER CLARITY CONNE[employer]CARE [place] NON NSPG PCP SILVER [place]AR[place] CONNECTORCARE [place] NON NSPG PCP S[place]VER [place]AR[place] CONNE[employer]CARE [place] NON NSPG PCP S[place]VER [place]AR[place] [employer] [place] NON NSPG PCP [place] [employer]ARE Care Teams Manager Clinical Pharmacy Relationship Specialty Start Date End Date Karen Sotelo PA [address] [facility] [address] [place] [address] PCP - General Container Washer 11/21/18 Additional Source Comments The information contained in this document represents components of the legal health record. It is not the complete legal health record.[facility]
--- OUTSIDE RECORDS SUMMARY | 2025-01-25 14:48 | XMS_ITS | Encounter Summary ---
Author Organization [facility] Address [address] [place] [phone] Phone Care Team Providers Care Burglar Alarm Operator Name Role Phone Karen Sotelo Primary Care Provider [phone] Encounter Details Date Type Department Care Team (Latest Contact Info) Description 11/22/2018 Transcribe Orders [address] [place] [address] Manpreet Hidalgo, [address] [address] [email or web address] Low testosterone in male Social History Tobacco Use Types Packs/Day Years Used Date Smoking Tobacco: Former Cigarettes 1 5 Smokeless Tobacco: Current Snuff Alcohol Use Standard Drinks/Week Comments Not Currently 0 (1 standard drink = 0.6 oz pur e alcohol) Sex and Gender Information Value Date Recorded Sex Assigned at Not on file Legal Sex Male 9:21 AM EDT Gender Identity Not on file Sexual Orientation Not on file documented as of this encounter Plan of Treatment Not on file documented as of this encounter Procedures Procedure Name Priority Date/Time Associated Diagnosis Comments MACROPROLACTIN, SERUM Routine 11/22/2018 8:17 AM EDT TESTOSTERONE, TOTAL AND FREE Routine 11/22/2018 8:17 AM EDT Low testosterone in male PROLACTIN Routine 11/22/2018 8:17 AM EDT Low testosterone in male PSA (SCREENING) Routine 11/22/2018 8:17 AM EDT Low testosterone in male LH Routine 11/22/2018 8:17 AM EDT Low testosterone in male FSH Routine 11/22/2018 8:17 AM EDT Low testosterone in male LIPID PANEL Routine 11/22/2018 8:17 AM EDT Low testosterone in male documented in this encounter Results * Macroprolactin, serum (11/22/2018 8:17 AM EDT) Macroprolactin 78 60 - 100 % [facility] Comment: Interpretation: Greater than 60%: Negative for macroprolactin (Sample contains mostly biologically active monomeric prolactin) Between 40-60%: Iniguez zone (Sample contains both monomeric and macroprolactin) Less than 40%: Positive for macroprolactin (Indicating an elevated prolactin may be spurious) 11/22/2018 8:17 AM EDT 11/22/2018 8:28 AM EDT us Manpreet Hidalgo LAB BLOOD ORDERABLES Final Resul t [address] [address] * (ABNORMAL) Prolactin (11/22/2018 8:17 AM EDT) PROLACTIN 24.5(H) 4.0 - 15.2 ng/mL [facility] Blood 11/22/2018 8:17 AM EDT 11/22/2018 8:28 AM EDT us Manpreet Hidalgo LAB BLOOD ORDERABLES Final Resul t Performing Organization Address City/[facility]/ZIP Co de Phone Number [address] [address] * LH (11/22/2018 8:17 AM EDT) LH 3.6 IU/L [facility] Comment: Interpretation: MALE: 1.7 - 8.6 mIU/ml Blood 11/22/2018 8:17 AM EDT 11/22/2018 8:28 AM EDT [facility] BLOOD ORDERABLES Final Resul t Performing Organization Address City/[facility] Co de Phone Number [address] [address] * FSH (11/22/2018 8:17 AM EDT) FSH 2.9 IU/L [facility] Comment:MALE: 1.5-12.5 mIU/m L Blood 11/22/2018 8:17 AM EDT 11/22/2018 8:28 AM EDT [facility] BLOOD ORDERABLES Final Resul t Performing Organization Address [facility] de Phone Number [address] [address] * Testosterone, total and free (11/22/2018 8:17 AM EDT) FREE TESTOSTERONE 9.77 4.85 - 19.0 ng/dL [facility] Comment: (NOTE) ADDITIONAL INFORMATION Testing performed by [facility]. This test was developed and its performance characteristics determined by [facility] in a manner consistent with CLIA requirements. This test has not been cleared or approved by the U.S. Food and Drug Administration. TESTOSTERONE, TOTAL 337 240 - 950 ng/dL [facility] Comment: (NOTE) ADDITIONAL INFORMATION Testing performed by Liquid Chromatography-Tandem Mass Spectrometry (LC-MS/MS). This test was developed and its performance characteristics determined by [facility] in a manner consistent with CLIA requirements. This test has not been cleared or approved by the U.S. Food and Drug Administration. Blood 11/22/2018 8:17 AM EDT 11/22/2018 8:24 AM EDT [facility] BLOOD ORDERABLES Final Resul t [facility] [address] [place] [address] * PSA (screening) (11/22/2018 8:17 AM EDT) PSA 0.31 0 - 4.00 ng/mL [facility] Blood 11/22/2018 8:17 AM EDT 11/22/2018 8:24 AM EDT [facility] BLOOD ORDERABLES Final Resul t Performing Organization Address City/[facility] Co de Phone Number [address] [address] * (ABNORMAL) Lipid panel (11/22/2018 8:17 AM EDT) HDL 61 mg/dL [facility] Comment: Interpretation <40 mg/dL: Low HDL cholesterol (major risk factor for CHD) Greater than or equal to 60 mg/dL: High HDL cholesterol ( negative risk factor for CHD) HDL - cholesterol is affected by a number of factors, e.g. smoking, excerise, hormones, sex and age. CHOLESTEROL 142 0 - 240 mg/dL [facility] TRIGLYCERIDES 43 30 - 160 mg/dL [facility] LDL 72 50 - 129 mg/dL [facility] Comment: LDL levels in terms of risk for coronary heart disease: <100 mg/dL: Optimal 100-129 mg/dL: Near or above optimal 130-159 mg/dL: Borderline high 160-189 mg/dL: High >190 mg/dL: Very High CARDIAC RISK RATIO 2.3(L) 3.4 - 5.0 C [facility] Blood 11/22/2018 8:17 AM EDT 11/22/2018 8:28 AM EDT us Manpreet Hidalgo DO LAB BLOOD ORDERABLES Final Resul t [facility] [address] [place] [address] documented in this encounter Visit Diagnoses Diagnosis Low testosterone in male documented in this encounter Care Teams Burglar Alarm Operator Relationship Specialty Start Date End Date Karen Sotelo PA [address] [address] PCP - General Manager Night 11/21/18 documented as of this encounter Additional Source Comments The information contained in this document represents components of the legal health record. It is not the complete legal health record.[facility]
[2025-01-31 06:38] LABS: Estradiol Ultra Sensitive 23 pg/mL (< OR = 29)
[2025-02-01 15:09] LABS: Testosterone, Free 144.3 pg/mL (35.0-155.0)
== END 2025-01-25 11:48 | disposition home or self-care (01) ==
LOC: HO.LAB 11:47
PROVIDERS: Visit Provider Nurse Practitioner Family
DX: Z12.5 Encounter for screening for malignant neoplasm of prostate (principal); A79.82 Anaplasmosis [A. phagocytophilum]; E29.1 Testicular hypofunction
CPT/HCPCS: 36415; 82670; 84153; 84402; 84403; 85025; 86666